=== PATIENT | female | born 1940 | race African-American/Black ===

== ENCOUNTER 2019-05-19 01:27 | Inpatient (IN) | payer MEDICARE ==
[2019-05-19] MEDS ORDERED: LORAZEPAM INJ 2 MG/1 ML VIAL ONE (02:04)
[2019-05-19] MEDS ORDERED: LEVETIRACETAM 1000 MG/NACL-ISO 1,000 MG/100 ML RTUPB IV ONE (02:17)
[2019-05-19 02:32] LABS: ALANINE AMINOTRANSFERASE 17 U/L (9-52); ALBUMIN 3.9 g/dL (3.5-5.0); ALKALINE PHOSPHATASE 145 U/L (38-126); ANION GAP 10 (5-19); ASPARTATE AMINO TRANSFERASE 27 U/L (14-36); BILIRUBIN,DIRECT 0.1 mg/dL (0.0-0.4); BILIRUBIN,TOTAL 0.2 mg/dL (0.2-1.3); BLOOD UREA NITROGEN 21 mg/dL (7-20); CALCIUM 9.7 mg/dL (8.4-10.2); CARBON DIOXIDE 25 mmol/L (22-30); CHLORIDE 105 mmol/L (98-107); CREATINE KINASE 84 U/L (30-135); GLUCOSE 185 mg/dL (75-110); LIPASE 267.6 U/L (23-300); POTASSIUM 4.6 mmol/L (3.6-5.0); TOTAL PROTEIN 7.3 g/dL (6.3-8.2)
[2019-05-19 02:34] LABS: ABSOLUTE EOSINOPHILS # (AUTO) 0.1 10^3/uL (0.0-0.6); ABSOLUTE LYMPHOCYTES (AUTO) 1.6 10^3/uL (0.5-4.7); ABSOLUTE MONOCYTES (AUTO) 0.4 10^3/uL (0.1-1.4); ABSOLUTE NEUT (AUTO) 3.9 10^3/uL (1.7-8.2); BASOPHILS % (AUTO) 0.7 % (0-2); EOSINOPHILS % (AUTO) 1.2 % (0-6); HEMATOCRIT 42.1 % (36.0-47.0); HEMOGLOBIN 13.7 g/dL (12.0-15.5); MEAN CORPUSCULAR HEMOGLOBIN 28.4 pg (27.0-33.4); MEAN CORPUSCULAR HGB CONC 32.7 g/dL (32.0-36.0); MEAN CORPUSCULAR VOLUME 87 fl (80-97); MONOCYTES % (AUTO) 6.2 % (3-13); PLATELET COUNT 250 10^3/uL (150-450); RED BLOOD COUNT 4.84 10^6/uL (3.72-5.28); RED CELL DISTRIBUTION WIDTH 14.9 % (11.5-14.0); SEGMENTED NEUTROPHILS % (AUTO) 64.9 % (42-78); TOTAL CELLS COUNTED % (AUTO) 100 %
[2019-05-19 02:36] LABS: INTERNATIONAL RATION (INR) 0.91; PARTIAL THROMBOPLASTIN TIME 30.5 SEC (23.5-35.8); PROTHROMBIN TIME 12.2 SEC (11.4-15.4)
[2019-05-19 02:56] LABS: CREATINE KINASE MB 2.18 ng/mL (<4.55); NT PRO BNP 114 pg/mL (<450)
[2019-05-19 03:04] LABS: TROPONIN I < 0.012 ng/mL
--- NOTE | 2019-05-19 03:25 | ER Document Report ---
ED Seizure - General Chief Complaint: possible seizure Stated Complaint: POSSIBLE SEIZURE Time Seen by Provider: 05/19/19 02:12 Primary Care Provider: STEPHANIE ARIAS MD [Primary Care Provider] - Follow up as needed Mode of Arrival: Medic Information source: Relative Cannot obtain history due to: Dementia, Altered mental status, Other - Post ictal TRAVEL OUTSIDE OF THE [place] IN LAST 30 DAYS: No - HPI Patient complains to provider of: First seizure Number of episodes: 2 Quality of pain: No pain Severity: None Episode witnessed (by whom): Yes - Family and one episode in the ED. Character of seizure: Complete loss/conscious, Generalized shaking Post-ictal symptoms: Other - Unresponsive Injuries: None Associated Symptoms: Loss consciousness - Related Data Allergies/Adverse Reactions: No Known Allergies Allergy (Unverified 01/06/16 02:25) Past Medical History - Social History Smoking Status: Unknown if Ever Smoked Family History: Reviewed & Not Pertinent Psychiatric Medical History: Denies: Hx Depression Past Surgical History: Reports: Hx Mastectomy Review of Systems - Review of Systems -: Yes ROS unobtainable due to patient's medical condition - Post Ictal and unresponsive. Physical Exam - Vital signs Vitals: Resp Pulse Ox 5 L 100 05/19/19 01:40 05/19/19 01:40 Interpretation: Normal - General General appearance: Unresponsive In distress: None - HEENT Head: Normocephalic, Atraumatic Eyes: Normal Pupils: PERRL - Respiratory Respiratory status: No respiratory distress Chest status: Nontender Breath sounds: Rhonchi Chest palpation: Normal - Cardiovascular Rhythm: Regular Heart sounds: Normal auscultation Murmur: No - Abdominal Inspection: Normal Distension: No distension Bowel sounds: Normal Tenderness: Nontender Organomegaly: No organomegaly - Extremities General upper extremity: Normal inspection, Nontender, Normal color, Normal ROM, Normal temperature General lower extremity: Normal inspection, Nontender, Normal color, Normal ROM, Normal temperature, Normal weight bearing. No: Isak's sign - Neurological [place] Coma Scale Eye Opening: To Pain [place] Coma Scale Verbal: None [place] Coma Scale Motor: Localizes to Pain [place] Coma Scale Total: 8 - Skin Skin Temperature: Warm Skin Moisture: Dry Skin Color: Normal Course - Vital Signs Vital signs: Temp Pulse Resp BP Pulse Ox 94.2 F L 87 17 147/81 H 100 05/19/19 03:01 05/19/19 01:44 05/19/19 03:01 05/19/19 03:01 05/19/19 03:01 - Laboratory Result Diagrams: 05/19/19 01:50 05/19/19 01:50 Laboratory results interpreted by me: 05/19/19 05/19/19 05/19/19 01:50 01:50 02:40 RDW 14.9 H BUN 21 H Glucose 185 H Alkaline Phosphatase 145 H Urine Protein 30 H Urine Glucose (UA) 150 H - Diagnostic Test Radiology reviewed: Reports reviewed - Transfer of Care Notes: 05/19/19 04:13 Patient will be admitted by the hospitalist on-call Dr. Hugh Katz for further evaluation and management. Discharge - Discharge Clinical Impression: New onset seizure, Hydrocephalus in adult Condition: Stable Disposition: ADMITTED INPATIENT Admitting Provider: Sterling (Hospitalist) Unit Admitted: IMCU Referrals: STEPHANIE ARIAS MD [Primary Care Provider] - Follow up as needed
[2019-05-19 03:36] LABS: URINE SPECIFIC GRAVITY 1.009
[2019-05-19 03:37] LABS: APPEARANCE,URINE CLEAR; BILIRUBIN,URINE NEGATIVE (NEGATIVE); COLOR,URINE STRAW; GLUCOSE, URINE 150 mg/dL (NEGATIVE); KETONES,URINE NEGATIVE (NEGATIVE); LEUKOCYTE ESTERASE,URINE NEGATIVE (NEGATIVE); NITRITE,URINE NEGATIVE (NEGATIVE); PROTEIN,URINE 30 mg/dL (NEGATIVE); UROBILINOGEN,URINE NEGATIVE mg/dL (<2.0)
--- NOTE | 2019-05-19 04:01 | RADIOLOGY REPORT (SQ) ---
CT head without contrast on 05/19/2019 at 3:27 AM CLINICAL INDICATION: New onset seizure TECHNIQUE: Multiple axial images are obtained throughout the head without the administration of contrast. This exam was performed according to our departmental dose-optimization program, which includes automated exposure control, adjustment of the mA and/or kV according to patient size and/or use of iterative reconstruction technique. Total DLP is 937.36 mGy*cm. COMPARISON: 01/05/2016 FINDINGS: There is worsening moderate to severe hydrocephalus. This may be related to worsening normal pressure hydrocephalus. If clinically indicated nuclear medicine cisternogram could better evaluate. There is generalized cerebral atrophy. There is low-density in the periventricular white matter consistent with chronic small vessel ischemic changes. There is no CT evidence of acute infarct. There is no hemorrhage. There are no abnormal extra-axial fluid collections. There is no mass, mass effect or midline shift. Mucous retention cyst is noted in the left maxillary sinus. No bony abnormality is noted area IMPRESSION: 1. Worsening hydrocephalus, this may be related to normal pressure hydrocephalus. 2. Atrophy and chronic small vessel ischemic changes.
--- NOTE | 2019-05-19 04:02 | RADIOLOGY REPORT (SQ) ---
Chest single view on 05/19/2019 at 3:39 AM CLINICAL INDICATION: Seizure COMPARISON: 01/05/2016 FINDINGS: There is mild elevation of the left hemidiaphragm. There is minimal left basilar atelectasis or scarring. The lungs are otherwise clear. Cardiac, hilar and mediastinal contours are within normal limits. Pulmonary vascularity is within normal limits. IMPRESSION: No acute disease.
[2019-05-19] MEDS ORDERED: ALBUTEROL SULFATE 0.083% NEB 2.5 MG/3 ML AMPUL NEB PRN (05:55)
[2019-05-19] MEDS ORDERED: ACETAMINOPHEN 650 MG SUPP.RECT PR PRN (05:55)
--- NOTE | 2019-05-19 06:12 | PDOC H&P ---
History of Present Illness Admission Date/PCP: 05/19/19 04:35 STEPHANIE ARIAS MD Patient complains of: Seizure History of Present Illness: PERI REILLY is a 78 year old female with a past medical history of advanced dementia who is bedbound, nonverbal and requires 100% assistance. She presents shortly after a witnessed seizure at home brought to the emergency room for evaluation and has another she receives IV Ativan and Keppra and remains in a postictal state. Her work-up is only remarkable for moderate to severe hydrocephalus. Family declines LP at this time. No evidence for ongoing seizure and she is referred to the hospitalist for admission. There is been no recent change in medications. Past Medical History Psychiatric Medical History: Reports: Dementia Denies: Depression Past Surgical History Past Surgical History: Reports: Mastectomy Social History Information Source: Relative, Emergency Med Personnel, [facility] Records Lives with: Family Smoking Status: Unknown if Ever Smoked Frequency of Alcohol Use: None Hx Recreational Drug Use: No - unknown Drugs: None Hx Prescription Drug Abuse: No - Advance Directive Resuscitation Status: Full Code Family History Family History: Hypertension Parental Family History Reviewed: No - Noncontributory Children Family History Reviewed: No - Noncontributory Sibling(s) Family History Reviewed.: No - Noncontributory Medication/Allergy Home Medications: Difluprednate [Durezol] 1 drop OP BID 01/06/16 Dorzolamide HCl/Timolol Maleat [Dorzolamide-Timolol Eye Drops] 1 drop OP BID 01/06/16 Memantine HCl [Namenda Xr] 1 cap PO DAILY 01/06/16 Polysorbate 80/Glycerin [Refresh Dry Eye Therapy Drops] 1 drop OP QHS 01/06/16 Rivastigmine [Exelon 9.5 mg/24 Hr Transdermal Patch] 1 ea TD QAM 01/06/16 Travoprost (Benzalkonium) [Travoprost 0.004% Eye Drop] 2.5 ml OP DAILY 01/06/16 Aspirin 81 mg PO DAILY PRN #1 pkg 01/15/16 Allergies/Adverse Reactions: No Known Allergies Allergy (Unverified 01/06/16 02:25) Review of Systems ROS unobtainable: Due to mental status Physical Exam Vital Signs: Temp Pulse Resp BP Pulse Ox 94.2 F L 87 17 147/81 H 100 05/19/19 03:01 05/19/19 01:44 05/19/19 03:01 05/19/19 03:01 05/19/19 03:01 Intake & Output 05/17/19 05/18/19 05/19/19 11:59 11:59 11:59 Weight 69.853 kg General appearance: PRESENT: mild distress, well-developed, well-nourished, other - Obtunded Head exam: PRESENT: atraumatic, normocephalic Eye exam: PRESENT: other - Right pupil pinpoint nonreactive, left pupil obscured by cataract. ABSENT: periorbital swelling, PERRLA, scleral icterus Ear exam: PRESENT: normal external ear exam Mouth exam: PRESENT: moist, tongue midline Neck exam: ABSENT: carotid bruit, JVD, lymphadenopathy, thyromegaly Respiratory exam: PRESENT: clear to auscultation mary. ABSENT: rales, rhonchi, wheezes Cardiovascular exam: PRESENT: RRR. ABSENT: diastolic murmur, rubs, systolic murmur Pulses: PRESENT: normal dorsalis pedis pul Vascular exam: PRESENT: normal capillary refill GI/Abdominal exam: PRESENT: normal bowel sounds, soft. ABSENT: distended, guarding, mass, organolmegaly, rebound, tenderness Rectal exam: PRESENT: deferred Extremities exam: PRESENT: full ROM. ABSENT: calf tenderness, clubbing, pedal edema Neurological exam: PRESENT: altered. ABSENT: alert, oriented to person, oriented to place, oriented to time, oriented to situation, CN II-XII grossly intact Psychiatric exam: ABSENT: appropriate affect, homicidal ideation, normal mood, suicidal ideation Focused psych exam: PRESENT: other - Obtunded Skin exam: PRESENT: dry, intact, warm. ABSENT: cyanosis, rash Results Laboratory Results: 05/19/19 01:50 05/19/19 01:50 05/19/19 05/19/19 05/19/19 01:50 01:50 02:40 WBC 6.0 RBC 4.84 Hgb 13.7 Hct 42.1 MCV 87 MCH 28.4 MCHC 32.7 RDW 14.9 H Plt Count 250 Seg Neutrophils % 64.9 Lymphocytes % 27.0 Monocytes % 6.2 Eosinophils % 1.2 Basophils % 0.7 Absolute Neutrophils 3.9 Absolute Lymphocytes 1.6 Absolute Monocytes 0.4 Absolute Eosinophils 0.1 Absolute Basophils 0.0 Sodium 140.0 Potassium 4.6 Chloride 105 Carbon Dioxide 25 Anion Gap 10 BUN 21 H Creatinine 0.86 Est GFR ( Amer) > 60 Est GFR (Non-Af Amer) > 60 Glucose 185 H Calcium 9.7 Total Bilirubin 0.2 AST 27 ALT 17 Alkaline Phosphatase 145 H Total Protein 7.3 Albumin 3.9 Lipase 267.6 Urine Color STRAW Urine Appearance CLEAR Urine pH 7.0 Ur Specific [place] 1.009 Urine Protein 30 H Urine Glucose (UA) 150 H Urine Ketones NEGATIVE Urine Blood NEGATIVE Urine Nitrite NEGATIVE Ur Leukocyte Esterase NEGATIVE Urine WBC (Auto) 2 Urine RBC (Auto) 3 05/19/19 05/19/19 01:50 01:50 Creatine Kinase 84 CK-MB (CK-2) 2.18 Troponin I < 0.012 NT-Pro-B Natriuret Pep 114 Impressions: Head CT 05/19/19 02:13 IMPRESSION: 1. Worsening hydrocephalus, this may be related to normal pressure hydrocephalus. 2. Atrophy and chronic small vessel ischemic changes. Chest X-Ray 05/19/19 02:14 IMPRESSION: No acute disease. Assessment and Plan - Diagnosis (1) Hydrocephalus in adult Is this a current diagnosis for this admission?: Yes Plan: Family declines LP at this time, will initiate loop diuretic trial. (2) New onset seizure Is this a current diagnosis for this admission?: Yes Plan: Secondary to #1, IV Keppra, complicated by advanced dementia unclear potential to recover p.o. status. Poor candidate for NG or PEG. Will consult hospice. (3) Dementia Is this a current diagnosis for this admission?: Yes Plan: End-stage, nonverbal poorly responsive but able to tolerate p.o. prior to seizure. Supportive measures - Time Time Spent with patient: 25-34 minutes - Inpatient Certification Medical Necessity: Need Close Monitoring Due to Risk of Patient Decompensation
[2019-05-19] MEDS ORDERED: FUROSEMIDE INJ/PF 40 MG/4 ML SDV IV ONE (06:30)
[2019-05-19] MEDS ORDERED: FUROSEMIDE INJ/PF 40 MG/4 ML SDV ONE (08:39)
[2019-05-19] MEDS: HEPARIN SOD (PORCINE) 5,000 UNIT/ML 1 ML SYRINGE SUBCUT SCH ×3 (09:09→21:13)
[2019-05-19] MEDS ORDERED: ACETAZOLAMIDE 500 MG CAPSULE.SA PO SCH (09:30)
--- NOTE | 2019-05-19 09:41 | EKG REPORT ---
SEVERITY:- NORMAL ECG - SINUS RHYTHM NONSPECIFIC ST-T CHANGES : Confirmed by: Lala Peña 19-May-2019 09:41:26
[2019-05-19] MEDS ORDERED: LEVETIRACETAM 1000 MG/NACL-ISO 1,000 MG/100 ML RTUPB IV SCH (10:00)
[2019-05-19] MEDS: ACETAZOLAMIDE SODIUM INJ 500 MG VIAL IV SCH ×2 (13:11→21:13)
--- NOTE | 2019-05-19 13:52 | ADVANCED CARE ---
- Diagnosis (1) Hydrocephalus in adult Diagnosis Current: Yes (2) New onset seizure Diagnosis Current: Yes (3) Abnormal CT of brain Diagnosis Current: Yes (4) Dementia Diagnosis Current: Yes (5) Functional quadriplegia Diagnosis Current: Yes Resuscitation Status: Do Not Resuscitate Discussion: Patient admitted after midnight for seizures x3 1 of which was in the ED this morning. I saw and examined patient this morning along with and son at bedside. Patient is not awake and snoring-likely secondary to the Ativan that was given to her in the Keppra that was loaded for. She is not any acute distress. I had a long discussion with son and father about her CODE STATUS They tell me that patient is completely dependent for all her needs at home. Supposedly she has been like this for over 5 years. Patient has severe dementia and she has been to physicians at [place] and her primary care doctor who have offered no help besides Namenda that what she is on. As per son and she lives at home all day and dependent on all her ADLs On admission she was full CODE STATUS. I discussed about different options regarding her CODE STATUS. I explained that one option is to continue with current status but we do not have neurology services here and if are unable to help her here then I will have to transfer her to a tertiary facility that has neuro services. Options to is that we continue with all noninvasive medical treatment-but no heroic measures to be implemented-such as chest compression and intubation should she have respiratory or cardiac failure. This will for sure lead to if we do not intervene. Her third option is to seek palliative/hospice which will keep her comfortable for whatever time she has remaining. This of course for sure will shorten her life span. After much consideration the family agrees that they do not want anything invasive but they are not also ready for hospice or comfort care at this time. They would like to make her DNR at this time. They would like us to do any kind of medical treatment to see if she improves and then they will reevaluate the situation. I told him that I will speak with neurology regarding her hydrocephalus and seizures. More than 50% of my time was spent counseling and coordinating care. Time Spent: 30 minutes
--- NOTE | 2019-05-19 13:55 | Progress Note ---
Provider Note Provider Note: Called and spoke with neurology from [facility]- dr bradford I went over the case with the neurologist and he feels that medical treatment will not help the patient if it is truly NPH and that the only treatment is invasive such as a ventricular shunt or a lumbar tap to relieve some pressure. He believes that the acetazolamide will not make a difference and that Keppra is the best way to go to help with her seizures. He says that she patient should follow-up with her neurologist outpatient after discharge. I have stopped her Lasix and I am considering stopping her Acetazolamide. He also recommends giving Keppra 750 twice daily instead of the 1000 she is on right now.
[2019-05-19] MEDS: DEXTROSE 5%-NORMAL SALINE 1,000 ML IV PRN (17:52)
[2019-05-19] MEDS: LEVETIRACETAM 750 MG in NORMAL SALINE 100 ML IV SCH (21:13)
[2019-05-20] MEDS: HEPARIN SOD (PORCINE) 5,000 UNIT/ML 1 ML SYRINGE SUBCUT SCH ×3 (05:36→21:52)
[2019-05-20] MEDS: DEXTROSE 5%-NORMAL SALINE 1,000 ML IV PRN (05:39)
[2019-05-20 06:13] LABS: HEMATOCRIT 37.2 % (36.0-47.0); HEMOGLOBIN 11.8 g/dL (12.0-15.5); MEAN CORPUSCULAR HEMOGLOBIN 28.1 pg (27.0-33.4); MEAN CORPUSCULAR HGB CONC 31.8 g/dL (32.0-36.0); MEAN CORPUSCULAR VOLUME 88 fl (80-97); PLATELET COUNT 147 10^3/uL (150-450); RED BLOOD COUNT 4.21 10^6/uL (3.72-5.28); RED CELL DISTRIBUTION WIDTH 14.4 % (11.5-14.0)
[2019-05-20 06:16] LABS: WHITE BLOOD COUNT 14.4 10^3/uL (4.0-10.5)
[2019-05-20 06:32] LABS: ANION GAP 7 (5-19); BLOOD UREA NITROGEN 14 mg/dL (7-20); CALCIUM 9.2 mg/dL (8.4-10.2); CARBON DIOXIDE 24 mmol/L (22-30); CHLORIDE 110 mmol/L (98-107); GLUCOSE 277 mg/dL (75-110); POTASSIUM 3.8 mmol/L (3.6-5.0); SODIUM 140.8 mmol/L (137-145)
[2019-05-20] MEDS: RIVASTIGMINE 9.5 MG/24 HR PATCH.TD24 TD SCH (08:48)
--- NOTE | 2019-05-20 09:21 | Physician Advisory Note ---
Physician Advisor ProgressNote .: [facility], I have reviewed the medical record for this patient. Physician Advisor Statement: Asked to review case r.e. status. Severely demented 78yo Medicare Advantage pt, bedbound/nonverbal, with new onset sz.s. - New onset sz.s = typically approp for Obs initially, changing to INpt if doesn't return to baseline fn by next day able to go home. Pt still post-ictal & unable to take po intake at time of adm. Also w/temps 94's & 96s initially. Now day 2, reportedly remains post-ictal & unable to take po intake, with " definite decline since sz.s noted". - Not a candidate for NGT or PEG, family decline LP or shunt to relieve pressure of hydrocephalus. Receiving IVF & IV Keppra. Attending, please clarify: 1. Status: If this d2 info is accurate, please document the bolded points above, - If now expecting pt to require a 2nd night of close monitoring/tx in hospital awaiting return of fn, response to tx, or making other decisions, may be appropriate to change to Inpatient status. - If, however, plan is home or hospice ctr today w/comfort care, then should remain Obs status. 2. Is pt going to change to "comfort care"? (if so, please state this, & continue to list all dx.s pertinent to this adm.) 3. Did pt have "hypothermia, likely due to " initially, or were the initial temps spurious, or ...? Thanks! CK
[2019-05-20] MEDS ORDERED: TRAVOPROST OP SCH (10:00)
[2019-05-20] MEDS ORDERED: FUROSEMIDE INJ/PF 40 MG/4 ML SDV IV SCH (10:00)
[2019-05-20 10:02] LABS: ALANINE AMINOTRANSFERASE 18 U/L (9-52); ALKALINE PHOSPHATASE 92 U/L (38-126); ANION GAP 7 (5-19); ASPARTATE AMINO TRANSFERASE 16 U/L (14-36); BILIRUBIN,DIRECT 0.1 mg/dL (0.0-0.4); BILIRUBIN,TOTAL 0.3 mg/dL (0.2-1.3); BLOOD UREA NITROGEN 12 mg/dL (7-20); CALCIUM 9.1 mg/dL (8.4-10.2); CARBON DIOXIDE 21 mmol/L (22-30); CHLORIDE 112 mmol/L (98-107); GLUCOSE 258 mg/dL (75-110); POTASSIUM 3.7 mmol/L (3.6-5.0); SODIUM 139.8 mmol/L (137-145); TOTAL PROTEIN 5.7 g/dL (6.3-8.2)
[2019-05-20] MEDS: LEVETIRACETAM 750 MG in NORMAL SALINE 100 ML IV SCH ×2 (10:39→22:08)
[2019-05-20] MEDS ORDERED: CEFTRIAXONE INJ 1000 MG VIAL IV SCH (11:30)
--- NOTE | 2019-05-20 11:42 | PDOC PROGRESS REPORT ---
Subjective Progress Note for:: 05/20/19 Subjective:: 78 year old female with a past medical history of advanced dementia who is bedbound, nonverbal and requires 100% assistance. She presents shortly after a witnessed seizure at home brought to the emergency room for evaluation and has another she receives IV Ativan and Keppra and remains in a postictal state. Her work-up is only remarkable for moderate to severe hydrocephalus. Family declines LP at this time. No evidence for ongoing seizure and she is referred to the hospitalist for admission. There is been no recent change in medications. 05/[id number]-lutg-old female with past medical history of advanced dementia patient is bedbound at home nonverbal requiring 100% assistance at home she does not have any decubitus ulcerations at home. She was brought in for a witnessed seizure and she received IV Ativan and IV Keppra. CT scan shows severe hydrocep halus. Family is declined LP. If the LP need to be done probably she need to go to a tertiary care facility for further management. No acute events. Afebrile. Urine culture came back positive for gram-positive cocci started on IV Rocephin. During my examination patient slightly open her eyes and started moving her upper extremities. Reason For Visit: SEIZURE DEMENTIA Physical Exam Vital Signs: Temp Pulse Resp BP Pulse Ox 97.3 F 70 17 151/66 H 88 L 05/20/19 07:28 05/20/19 07:28 05/20/19 07:28 05/20/19 07:28 05/20/19 07:28 Intake & Output 05/19/19 05/20/19 05/21/19 06:59 06:59 06:59 Intake Total 1191.5 Output Total 425 Balance 766.5 Weight 69.853 kg 69.8 kg General appearance: PRESENT: no acute distress Head exam: PRESENT: atraumatic Eye exam: PRESENT: PERRLA Mouth exam: PRESENT: dry mucosa Teeth exam: PRESENT: poor dentation Neck exam: ABSENT: carotid bruit, JVD, lymphadenopathy, thyromegaly Respiratory exam: PRESENT: clear to auscultation mary. ABSENT: rales, rhonchi, wheezes Cardiovascular exam: PRESENT: RRR. ABSENT: diastolic murmur, rubs, systolic murmur GI/Abdominal exam: PRESENT: normal bowel sounds, soft. ABSENT: distended, guarding, mass, organolmegaly, rebound, tenderness Rectal exam: PRESENT: deferred Extremities exam: PRESENT: full ROM. ABSENT: calf tenderness, clubbing, pedal edema Neurological exam: PRESENT: other - Patient has advanced dementia unable to follow the commands. Patient is bedbound at home. Results Laboratory Results: 05/20/19 05:49 05/20/19 08:15 05/20/19 05/20/19 05/20/19 05:49 05:49 08:15 WBC 14.4 H D RBC 4.21 Hgb 11.8 L Hct 37.2 MCV 88 MCH 28.1 MCHC 31.8 L RDW 14.4 H Plt Count 147 L Sodium 140.8 139.8 Potassium 3.8 3.7 Chloride 110 H 112 H Carbon Dioxide 24 21 L Anion Gap 7 7 BUN 14 12 Creatinine 0.77 0.77 Est GFR ( Amer) > 60 > 60 Est GFR (Non-Af Amer) > 60 > 60 Glucose 277 H 258 H Calcium 9.2 9.1 Magnesium 2.4 H Total Bilirubin 0.3 AST 16 ALT 18 Alkaline Phosphatase 92 Total Protein 5.7 L Albumin 3.0 L 05/19/19 05/19/19 01:50 01:50 Creatine Kinase 84 CK-MB (CK-2) 2.18 Troponin I < 0.012 NT-Pro-B Natriuret Pep 114 Impressions: Head CT 05/19/19 02:13 IMPRESSION: 1. Worsening hydrocephalus, this may be related to normal pressure hydrocephalus. 2. Atrophy and chronic small vessel ischemic changes. Chest X-Ray 05/19/19 02:14 IMPRESSION: No acute disease. Assessment and Plan - Diagnosis (1) Dementia Is this a current diagnosis for this admission?: Yes Plan: End-stage, nonverbal poorly responsive but able to tolerate p.o. prior to seizure. Supportive measures 05/20/2019-patient has advanced dementia restarted on home medications right now patient is unable to take any p.o. medications. (2) Abnormal CT of brain Is this a current diagnosis for this admission?: Yes Plan: 05/20/2019-patient has abdominal CT head with severe hydrocephalus family declined LP so far. If the family agreed for LP patient may need to be transferred to tertiary care facility. Presently on loop diuretics. (3) UTI (urinary tract infection) Is this a current diagnosis for this admission?: Yes Plan: 05/20/2019-patient's urine culture came back positive for gram-positive cocci started on IV Rocephin 2 g daily. (4) New onset seizure Is this a current diagnosis for this admission?: Yes Plan: Secondary to #1, IV Keppra, complicated by advanced dementia unclear potential to recover p.o. status. Poor candidate for NG or PEG. Will consult hospice. 05/21/2019-patient has witnessed seizure activity presently on IV Keppra no seizure activity after the admission. - Time Time Spent with patient: 25-34 minutes Medications reviewed and adjusted accordingly: Yes Anticipated discharge: Home
[2019-05-20] MEDS: CEFTRIAXONE 2 GM/D5W RTU 2 GM/50 ML RTUPB IV SCH (13:10)
[2019-05-20] MEDS ORDERED: TRAVOPROST OS SCH (22:00)
[2019-05-20] MEDS ORDERED: LATANOPROST 0.005% OPH SOLN 2.5 ML OS SCH (22:00)
[2019-05-20] MEDS: [UNRECOGNIZED DRUG - OTHER] OS SCH (22:08)
[2019-05-20] MEDS: DIFLUPREDNATE OS SCH (22:16)
[2019-05-20] MEDS: LATANOPROST 0.005% OPH SOLN 2.5 ML OS SCH (22:21)
[2019-05-21] MEDS: HYDRALAZINE HCL INJ/PF 20 MG/1 ML SDV IV PRN (04:46)
[2019-05-21 05:45] LABS: ABSOLUTE BASOPHILS # (AUTO) 0.1 10^3/uL (0.0-0.2); ABSOLUTE LYMPHOCYTES (AUTO) 1.3 10^3/uL (0.5-4.7); ABSOLUTE MONOCYTES (AUTO) 0.8 10^3/uL (0.1-1.4); ABSOLUTE NEUT (AUTO) 6.9 10^3/uL (1.7-8.2); BASOPHILS % (AUTO) 0.8 % (0-2); EOSINOPHILS % (AUTO) 0.2 % (0-6); HEMATOCRIT 37.3 % (36.0-47.0); HEMOGLOBIN 12.3 g/dL (12.0-15.5); LYMPHOCYTES % (AUTO) 14.1 % (13-45); MEAN CORPUSCULAR HEMOGLOBIN 28.5 pg (27.0-33.4); MEAN CORPUSCULAR HGB CONC 32.9 g/dL (32.0-36.0); MEAN CORPUSCULAR VOLUME 87 fl (80-97); MONOCYTES % (AUTO) 8.6 % (3-13); PLATELET COUNT 160 10^3/uL (150-450); RED BLOOD COUNT 4.31 10^6/uL (3.72-5.28); RED CELL DISTRIBUTION WIDTH 14.6 % (11.5-14.0); SEGMENTED NEUTROPHILS % (AUTO) 76.3 % (42-78); TOTAL CELLS COUNTED % (AUTO) 100 %
[2019-05-21] MEDS: HEPARIN SOD (PORCINE) 5,000 UNIT/ML 1 ML SYRINGE SUBCUT SCH ×3 (06:40→22:36)
[2019-05-21] MEDS: RIVASTIGMINE 9.5 MG/24 HR PATCH.TD24 TD SCH (08:25)
[2019-05-21 08:46] LABS: ALANINE AMINOTRANSFERASE 19 U/L (9-52); ALBUMIN 3.2 g/dL (3.5-5.0); ALKALINE PHOSPHATASE 86 U/L (38-126); ASPARTATE AMINO TRANSFERASE 20 U/L (14-36); BILIRUBIN,DIRECT 0.1 mg/dL (0.0-0.4); BILIRUBIN,TOTAL 0.2 mg/dL (0.2-1.3); BLOOD UREA NITROGEN 10 mg/dL (7-20); CALCIUM 9.4 mg/dL (8.4-10.2); GLUCOSE 130 mg/dL (75-110); POTASSIUM 3.5 mmol/L (3.6-5.0); TOTAL PROTEIN 6.2 g/dL (6.3-8.2)
[2019-05-21 08:51] LABS: CARBON DIOXIDE 23 mmol/L (22-30); CHLORIDE 115 mmol/L (98-107); SODIUM 142.7 mmol/L (137-145)
[2019-05-21 08:54] LABS: ANION GAP 5 (5-19)
[2019-05-21] MEDS: LEVETIRACETAM 750 MG in NORMAL SALINE 100 ML IV SCH ×2 (09:41→22:31)
[2019-05-21] MEDS: DIFLUPREDNATE OS SCH ×2 (09:41→22:35)
[2019-05-21] MEDS: CEFTRIAXONE 2 GM/D5W RTU 2 GM/50 ML RTUPB IV SCH (10:53)
--- NOTE | 2019-05-21 11:57 | Physician Advisory Note ---
Physician Advisor ProgressNote .: [facility] medical record for this patient. Physician Advisor Statement: Since last review: Dx'd UTI, (+)leukocytosis & thrombocytopenia & low bicarb (?acute metab acidosis). Pt w/frequent tachypnea initially, O2 sat as low as 88% on 2L O2 7/8 AM, recurrent low temp (94.6 rectal) 7/8 PM, [employer] noting concerns family has been fed even when not alert & high risk aspiration prior to adm. Remaining obtunded (not baseline). Attending, please make clear in documentation: 1. Is any other infxn being suspected besides UTI? (Aspiration PNA? Sepsis due to ___? other? none?) - & if so, state what findings (such as above) are caused by this infxn. (Any other eval needed to decide, such as lactate levels or CXR, or not?) - If sepsis is suspected, please state the approximate timing of its onset (< or > 48hrs from adm). 2. Likely cause(s) of hypoxemia, thrombocytopenia, low bicarb, hypothermia (if not clarified w/#1) Status: Medical necessity for 2nd [place] clear for this Medicare Advantage pt for whom we are a non-participating provider, so Inpt appropriate: Remaining obtunded, unable to take meds (not baseline), unclear potential to recover po status, not good candidate for NGT or PEG, needing IV Keppra for sz.s & IV R ocephin for UTI, family uncertain about Hospice vs transfer to [facility]..... Thx! CK
[2019-05-21] MEDS: AMPICILLIN SODIUM 1 GM in NORMAL SALINE 50 ML IV SCH ×2 (17:11→23:30)
[2019-05-21] MEDS ORDERED: AMPICILLIN SODIUM 500 MG in NORMAL SALINE 25 ML IV SCH (18:00)
--- NOTE | 2019-05-21 19:49 | PDOC PROGRESS REPORT ---
Subjective Progress Note for:: 05/21/19 Subjective:: Multiple family member sitting at the bedside. The patient is unresponsive to verbal stimulus. Family reports that she has been this way since admission. Reason For Visit: SEIZURES HYRDOCEPHALUS Physical Exam Vital Signs: Temp Pulse Resp BP Pulse Ox 98.4 F 69 18 144/61 H 100 05/21/19 14:58 05/21/19 14:58 05/21/19 14:58 05/21/19 14:58 05/21/19 14:58 Intake & Output 05/20/19 05/21/19 05/22/19 06:59 06:59 06:59 Intake Total 1191.5 739.0 157.5 Output Total 425 1450 Balance 766.5 -711.0 157.5 Weight 69.8 kg 75.8 kg General appearance: PRESENT: no acute distress, well-developed, other - Eyes closed. Unresponsive. Head exam: PRESENT: atraumatic, normocephalic Eye exam: PRESENT: other - She did resist when I try to open her eyes for examination Mouth exam: PRESENT: other - Unable to assess Respiratory exam: PRESENT: clear to auscultation mary - Anteriorly, symmetrical, unlabored. ABSENT: rales, rhonchi, tachypnea, wheezes Cardiovascular exam: PRESENT: RRR, +S1, +S2 GI/Abdominal exam: PRESENT: normal bowel sounds, soft. ABSENT: distended, tende rness Rectal exam: PRESENT: deferred Gentrourinary exam: PRESENT: indwelling catheter Extremities exam: ABSENT: joint swelling, pedal edema Musculoskeletal exam: ABSENT: ambulatory - Bedridden for several years Neurological exam: ABSENT: alert - Baseline is bedbound, unable to feed herself. Transfers by lift to chair or wheelchair., awake Psychiatric exam: ABSENT: agitated, anxious Focused psych exam: ABSENT: restlessness Skin exam: PRESENT: dry, normal color, warm Results Laboratory Results: 05/21/19 05:18 05/21/19 05:18 05/21/19 05/21/19 05:18 05:18 WBC 9.0 RBC 4.31 Hgb 12.3 Hct 37.3 MCV 87 MCH 28.5 MCHC 32.9 RDW 14.6 H Plt Count 160 Seg Neutrophils % 76.3 Lymphocytes % 14.1 Monocytes % 8.6 Eosinophils % 0.2 Basophils % 0.8 Absolute Neutrophils 6.9 Absolute Lymphocytes 1.3 Absolute Monocytes 0.8 Absolute Eosinophils 0.0 Absolute Basophils 0.1 Sodium 142.7 Potassium 3.5 L Chloride 115 H Carbon Dioxide 23 Anion Gap 5 BUN 10 Creatinine 0.81 Est GFR ( Amer) > 60 Est GFR (Non-Af Amer) > 60 Glucose 130 H Calcium 9.4 Magnesium 2.3 Total Bilirubin 0.2 AST 20 ALT 19 Alkaline Phosphatase 86 Total Protein 6.2 L Albumin 3.2 L 05/19/19 02:40 Catheterized Urine Urine Culture - Final Enterococcus Faecalis(Group D) 05/19/19 05/19/19 01:50 01:50 Creatine Kinase 84 CK-MB (CK-2) 2.18 Troponin I < 0.012 NT-Pro-B Natriuret Pep 114 Impressions: Head CT 05/19/19 02:13 IMPRESSION: 1. Worsening hydrocephalus, this may be related to normal pressure hydrocephalus. 2. Atrophy and chronic small vessel ischemic changes. Chest X-Ray 05/19/19 02:14 IMPRESSION: No acute disease. Assessment and Plan - Diagnosis (1) Hydrocephalus in adult Is this a current diagnosis for this admission?: Yes Plan: 05/21/2019-the patient had a CT scan in December 2015 that showed hydrocephalus at that time. It was not addressed. The current scan reveals worsened hydrocephalus that there is moderate to severe. The family declined lumbar puncture on admission. I asked them why. The did not seem to understand fully all of the issues involved. I explained that decreasing the pressure is of paramount importance. They would like the patient to be transferred for a HOT AIR FURNACE INSTALLER REPAIRER shunt. The patient has not been out of bed, is a phasic and a functional quadriplegic and I explained that neurosurgery might not accept the case. They have agreed to lumbar puncture with interventional radiology. If draining the fluid makes a noticeable difference then it may change the referral however we did discuss referral sites. They would like me to start at [facility]. We had a long discussion about her current quality of life and potential recovery. (2) New onset seizure Is this a current diagnosis for this admission?: Yes Plan: 05/21/2019-seizures secondary to the moderate to severe hydrocephalus. No further seizure activity on intravenous Keppra. (3) Dementia Qualifiers: Dementia type: unspecified type Dementia behavioral disturbance: without behavioral disturbance Qualified Code(s): F03.90 - Unspecified dementia without behavioral disturbance Is this a current diagnosis for this admission?: Yes Plan: 05/21/2019-dementia is quite advanced. As noted above the patient is immobile, aphasic and a functional quadriplegic. She is able to eat when she is fed. There is a question of how safe her swallow was based on speech therapy evaluation. At this point she is obtunded and clearly unable to swallow. As noted above the family does want to pursue HOT AIR FURNACE INSTALLER REPAIRER shunt placement. (4) UTI (urinary tract infection) due to Enterococcus Is this a current diagnosis for this admission?: Yes Plan: Urine culture obtained on admission has grown enterococcus. I have discontinued the Rocephin and started IV ampicillin 1 g IV every 6 hours. It is unlikely that an episode of cystitis has triggered all of the events. Certainly an infection can cause hypothermia in an older patient. There was no drop in blood pressure. Her oxygen saturation dropped to 80% briefly and she is on nasal cannula. We will attempt to wean her oxygen. We will continue to monitor to see how she responds to the change in antibiotics as well as the lumbar puncture for fluid removal. (5) Hypothermia Qualifiers: Encounter type: initial encounter Qualified Code(s): T68.XXXA - Hypothermia, initial encounter Is this a current diagnosis for this admission?: Yes Plan: The patient was hypothermic on admission. It is unclear as to the etiology. It certainly could be from infection. I am going to check her thyroid studies as well. Her temperature is back to normal at this point. - Time Time Spent with patient: 25-34 minutes Medications reviewed and adjusted accordingly: Yes - Plan Summary Plan Summary: At this point the family still wants to pursue a HOT AIR FURNACE INSTALLER REPAIRER shunt. I explained very thoroughly that due to her underlying condition as well as her end-stage dementia of the facilities that offer neurosurgery may decline to even accept the patient. I have ordered a lumbar puncture with interventional radiology tomorrow. I will also call the transfer center at [facility].
[2019-05-21] MEDS ORDERED: POTASSI CL 20 MEQ/50 ML RIDER 20 MEQ/50 ML RTUPB IV ONE (20:00)
[2019-05-21] MEDS: [UNRECOGNIZED DRUG - OTHER] OS SCH (22:35)
[2019-05-21] MEDS: LATANOPROST 0.005% OPH SOLN 2.5 ML OS SCH (22:39)
[2019-05-22] MEDS: HYDRALAZINE HCL INJ/PF 20 MG/1 ML SDV IV PRN (04:12)
[2019-05-22 05:28] LABS: ANION GAP 8 (5-19); BLOOD UREA NITROGEN 10 mg/dL (7-20); CALCIUM 9.4 mg/dL (8.4-10.2); CARBON DIOXIDE 22 mmol/L (22-30); CHLORIDE 114 mmol/L (98-107); GLUCOSE 107 mg/dL (75-110); POTASSIUM 3.4 mmol/L (3.6-5.0); SODIUM 144.3 mmol/L (137-145)
[2019-05-22] MEDS: AMPICILLIN SODIUM 1 GM in NORMAL SALINE 50 ML IV SCH ×4 (05:31→23:48)
[2019-05-22 05:39] LABS: FREE T3 3.18 pg/mL (2.77-5.27); FREE T4 (FREE THYROXINE) 1.5 ng/dL (0.78-2.19)
[2019-05-22 05:52] LABS: THYROID STIMULATING HORMONE 1.56 uIU/mL (0.47-4.68)
[2019-05-22] MEDS: RIVASTIGMINE 9.5 MG/24 HR PATCH.TD24 TD SCH (08:14)
[2019-05-22] MEDS: LEVETIRACETAM 750 MG in NORMAL SALINE 100 ML IV SCH ×2 (09:52→21:27)
[2019-05-22] MEDS: DIFLUPREDNATE OS SCH ×2 (09:52→21:29)
[2019-05-22] MEDS: POTASSI CL 20 MEQ/50 ML RIDER 20 MEQ/50 ML RTUPB IV SCH ×2 (12:14→15:01)
--- NOTE | 2019-05-22 14:36 | RADIOLOGY REPORT (SQ) ---
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 FLUOROSCOPY TIME: 2 minutes 60 seconds 6 images saved to PACS. TECHNIQUE: Fluoroscopic guided lumbar puncture. LIMITATIONS: None. PROCEDURE: After written consent and assessment were obtained, the patient was brought into the fluo roscopy room and placed prone on the table. The patient's lower back was prepped in a sterile fashio n and an entry site was selected under live fluoroscopic guidance. The entry site was anesthetized wi th 1% lidocaine. A 20 gauge needle was advanced through the skin and multiple attempts at gaining acc ess into the spinal canal were made without success. Additional sites were attempted without success . The procedure was terminated at this time. The needle was removed and a sterile dressing was appl ied. Multiple fluoroscopic spot images were saved to PACS. FINDINGS: Unsuccessful attempt at image guided lumbar puncture. IMPRESSION: Unsuccessful attempt a image guided lumbar puncture. COMMENT: Patient medication list reviewed: Yes- Quality ID# [id number]:Eligible professional attests to doc umenting in the medical record they obtained, updated, or reviewed the patient's current medications. . Quality ID [id number]: Final reports for procedures using fluoroscopy that document radiation exposure misbah clarita, or exposure time and number of fluorographic images (if radiation exposure indices are not avail able) TECHNICAL DOCUMENTATION: JOB ID: [id number] [employer]- All Rights Reserved Reading location - IP/workstation name: [email or web address]
--- NOTE | 2019-05-22 17:31 | ADVANCED CARE ---
- Diagnosis (1) Hydrocephalus in adult Diagnosis Current: Yes (2) New onset seizure Diagnosis Current: Yes (3) Dementia Diagnosis Current: Yes (4) UTI (urinary tract infection) due to Enterococcus Diagnosis Current: Yes (5) Hypothermia Diagnosis Current: Yes Attendance: On May 21 the patient's and 5 other relatives including her daughter were present. I also spoke with Olga Villeda MD who is a close family friend and considered to be like her daughter. On May 22 I was able to speak to the patient's son and an additional relative. Resuscitation Status: Do Not Resuscitate Discussion: The patient's family is aware of the hydrocephalus. That is the leading consideration for her seizure. She also has urinary tract infection and enterococcus was identified. The hydrocephalus has been present since 2016. It has increased in its considered moderate to severe. It is possible that the hydrocephalus caused the seizure activity but it is difficult to be certain. The infection may have contributed as well. The patient's family is requesting transfer so that a ACCOUNTS ADMINISTRATOR shunt can be placed. They also declined a lumbar puncture when the patient was first admitted. I reviewed the typical changes associated with hydrocephalus and common treatment alternatives. Initially a lumbar puncture is obtained to directly assess the cerebral spinal fluid pressure and at that time fluid is drained off. Sometimes that will relieve symptoms. I explained that at this facility most of the lumbar punctures are done with interventional radiology. I also explained in detail what is involved with placing a ACCOUNTS ADMINISTRATOR shunt. I do not think they were aware of the nature of the operation. I explained that in a patient who is a functional quadriplegic and is a phasic the risk versus benefit will likely result in neurosurgery declining such a procedure. As of yesterday the plan was to order the lumbar puncture and continue the antibiotics. If the patient improved then we would not consider transfer for ACCOUNTS ADMINISTRATOR shunt. This morning the patient in fact was more alert. Speech therapy was able to work with her. This was prior to the lumbar puncture being obtained. The patient may very well be responding to the antibiotic therapy or it just took her an extended period, longer than expected, for the postictal state to resolve. Narrowing the scope of antibiotic therapy to ampicillin specifically for the enterococcus may also be contributing to the improvement. Speech did explain to the family that there is definitely high risk for aspiration. She did make sure that they understood this. With that in mind we will try a pured diet with nectar thick liquids. I reviewed that with the patient's son today and made sure they understand the high risk of aspiration. The patient's would like the patient to eat and I did encourage the son not to let anyone be too aggressive with feeding the patient since it takes 6 seconds for her to initiate swallow. During my encounter today the patient was sleeping. The patient's son states that her normal routine is to fall asleep after she eats. I did review the patient's quality of life. I explained to the patient's that even if they do the ACCOUNTS ADMINISTRATOR shunt is not going to make her walk, be able to use her hands or resolve the aphasia. He stated that he would be very happy if she returned to the former state where she could eat, open her eyes and if she did this he would be satisfied with that improvement even if she were to live for 15 years. I tried to point out the fact that no one was considering the patient's best interest and I specifically asked him that if he spoke to his 10 years ago and asked her if she would want to be kept alive in this state but which he say. He immediately shook his head no. That at the same time continued the wish for her to return to her recent baseline which, as noted above, is functional quadriplegia with aphasia and dysphagia. Care Planning Goals: The patient is DO NOT RESUSCITATE. My goal was to establish parameters with regard to decision-making including palliative care versus hospice. I will likely suggest a palliative care consult tomorrow based on the results of the lumbar puncture and her condition. Document(s) Completed: No documents completed Time Spent: 45 minutes
--- NOTE | 2019-05-22 17:39 | PDOC PROGRESS REPORT ---
Subjective Progress Note for:: 05/22/19 Subjective:: Patient opened her eyes earlier and was able to work with speech therapy. She is sleeping at the time of this encounter. Reason For Visit: SEIZURES HYRDOCEPHALUS Physical Exam Vital Signs: Temp Pulse Resp BP Pulse Ox 97.4 F 64 16 156/76 H 99 05/22/19 04:02 05/22/19 07:00 05/22/19 04:02 05/22/19 05:10 05/22/19 04:34 Intake & Output 05/21/19 05/22/19 05/23/19 06:59 06:59 06:59 Intake Total 739.0 465.0 Output Total 1450 475 Balance -711.0 -10.0 Weight 75.8 kg 76.1 kg General appearance: PRESENT: no acute distress - sleeping soundly now Head exam: PRESENT: atraumatic, normocephalic Eye exam: PRESENT: other - unble to assess Mouth exam: PRESENT: dry mucosa, tongue midline Respiratory exam: PRESENT: clear to auscultation mary - decreased breath sounds due to limited inspirtory phase Cardiovascular exam: PRESENT: RRR, +S1, +S2 GI/Abdominal exam: PRESENT: normal bowel sounds, soft. ABSENT: distended, tenderness Rectal exam: PRESENT: deferred Gentrourinary exam: PRESENT: indwelling catheter Extremities exam: ABSENT: calf tenderness, pedal edema Musculoskeletal exam: PRESENT: other - decreased muscle Neurological exam: ABSENT: awake Psychiatric exam: PRESENT: other - Unresponsive to verbal stimuli. ABSENT: agitated, anxious Focused psych exam: ABSENT: restlessness Results Laboratory Results: 05/21/19 05:18 05/22/19 04:37 05/22/19 05/22/19 04:37 04:37 Sodium 144.3 Potassium 3.4 L Chloride 114 H Carbon Dioxide 22 Anion Gap 8 BUN 10 Creatinine 0.70 Est GFR ( Amer) > 60 Est GFR (Non-Af Amer) > 60 Glucose 107 Calcium 9.4 Magnesium 2.2 TSH 1.56 Free T4 1.50 Free T3 pg/mL 3.18 05/19/19 02:40 Catheterized Urine Urine Culture - Final Enterococcus Faecalis(Group D) 05/19/19 05/19/19 01:50 01:50 Creatine Kinase 84 CK-MB (CK-2) 2.18 Troponin I < 0.012 NT-Pro-B Natriuret Pep 114 Impressions: Head CT 05/19/19 02:13 IMPRESSION: 1. Worsening hydrocephalus, this may be related to normal pressure hydrocephalus. 2. Atrophy and chronic small vessel ischemic changes. Chest X-Ray 05/19/19 02:14 IMPRESSION: No acute disease. Assessment and Plan - Diagnosis (1) Hydrocephalus in adult Is this a current diagnosis for this admission?: Yes Plan: 05/21/2019-the patient had a CT scan in December 2015 that showed hydrocephalus at that time. It was not addressed. The current scan reveals worsened hydr ocephalus that there is moderate to severe. The family declined lumbar puncture on admission. I asked them why. The did not seem to understand fully all of the issues involved. I explained that decreasing the pressure is of paramount importance. They would like the patient to be transferred for a INTERNET SALES DIRECTOR shunt. The patient has not been out of bed, is a phasic and a functional quadriplegic and I explained that neurosurgery might not accept the case. They have agreed to lumbar puncture with interventional radiology. If draining the fluid makes a noticeable difference then it may change the referral however we did discuss referral sites. They would like me to start at [facility]. We had a long discussion about her current quality of life and potential recovery. 05/22/2019-the patient was more alert this morning. The 2 possibilities are treatment of the infection with the antibiotics versus her postictal state lasting much longer than would normally be expected. She is scheduled for lumbar puncture later today. Based on those results we will discuss whether or not to consider INTERNET SALES DIRECTOR shunt. If she continues to improve with the antibiotic therapy and supportive care then that will also obviate the need for a INTERNET SALES DIRECTOR shunt. (2) New onset seizure Is this a current diagnosis for this admission?: Yes Plan: 05/21/2019-seizures secondary to the moderate to severe hydrocephalus. No further seizure activity on intravenous Keppra. 05/22/2019-as noted above the seizure activity is likely due to the worsening hydrocephalus. She is scheduled for lumbar puncture today. She is more awake and alert this morning (but is sleeping at this time) and this could be related to the antibiotics or delayed resolution of the postictal state as noted above. She is on Keppra and has remained seizure-free. (3) Dementia Qualifiers: Dementia type: unspecified type Dementia behavioral disturbance: without behavioral disturbance Qualified Code(s): F03.90 - Unspecified dementia without behavioral disturbance Is this a current diagnosis for this admission?: Yes Plan: 05/21/2019-dementia is quite advanced. As noted above the patient is immobile, aphasic and a functional quadriplegic. She is able to eat when she is fed. There is a question of how safe her swallow was based on speech therapy evaluation. At this point she is obtunded and clearly unable to swallow. As noted above the family does want to pursue INTERNET SALES DIRECTOR shunt placement. 05/22/2019-we are continuing her current medication regimen and will resume medications now that speech therapy feels she can handle a pured nectar thick diet although there is still significant risk of aspiration. (4) UTI (urinary tract infection) due to Enterococcus Is this a current diagnosis for this admission?: Yes Plan: 05/21/2019-urine culture obtained on admission has grown enterococcus. I have discontinued the Rocephin and started IV ampicillin 1 g IV every 6 hours. It is unlikely that an episode of cystitis has triggered all of the events. Certainly an infection can cause hypothermia in an older patient. There was no drop in blood pressure. Her oxygen saturation dropped to 80% briefly and she is on nasal cannula. We will attempt to wean her oxygen. We will continue to monitor to see how she responds to the change in antibiotics as well as the lumbar puncture for fluid removal. 05/22/2019-the patient has received several doses of IV ampicillin. She was alert and awake earlier today. We will continue the ampicillin and monitor her progress. (5) Hypothermia Qualifiers: Encounter type: initial encounter Qualified Code(s): T68.XXXA - Hypothermia, initial encounter Is this a current diagnosis for this admission?: Yes Plan: 05/21/2019-the patient was hypothermic on admission. It is unclear as to the etiology. It certainly could be from infection. I am going to check her thyroid studies as well. Her temperature is back to normal at this point. 05/22/2019-the patient is back to normal temperature. We will continue to monitor. (6) Hypokalemia Is this a current diagnosis for this admission?: Yes Plan: The patient's serum potassium has been low. We are administering IV potassium as her swallow has only been deemed safe as of this morning. We will continue to monitor potassium. - Time Time Spent with patient: 25-34 minutes Medications reviewed and adjusted accordingly: Yes
[2019-05-22] MEDS: [UNRECOGNIZED DRUG - OTHER] OS SCH (21:28)
[2019-05-22] MEDS: LATANOPROST 0.005% OPH SOLN 2.5 ML OS SCH (21:28)
[2019-05-22] MEDS: HEPARIN SOD (PORCINE) 5,000 UNIT/ML 1 ML SYRINGE SUBCUT SCH (21:29)
[2019-05-23 05:28] LABS: ABSOLUTE EOSINOPHILS # (AUTO) 0.1 10^3/uL (0.0-0.6); ABSOLUTE LYMPHOCYTES (AUTO) 1.3 10^3/uL (0.5-4.7); ABSOLUTE MONOCYTES (AUTO) 0.6 10^3/uL (0.1-1.4); ABSOLUTE NEUT (AUTO) 4.6 10^3/uL (1.7-8.2); BASOPHILS % (AUTO) 0.3 % (0-2); EOSINOPHILS % (AUTO) 1.3 % (0-6); HEMATOCRIT 37.8 % (36.0-47.0); HEMOGLOBIN 12.5 g/dL (12.0-15.5); LYMPHOCYTES % (AUTO) 20.1 % (13-45); MEAN CORPUSCULAR HEMOGLOBIN 28.7 pg (27.0-33.4); MEAN CORPUSCULAR VOLUME 87 fl (80-97); MONOCYTES % (AUTO) 8.4 % (3-13); PLATELET COUNT 166 10^3/uL (150-450); RED BLOOD COUNT 4.35 10^6/uL (3.72-5.28); RED CELL DISTRIBUTION WIDTH 14.7 % (11.5-14.0); SEGMENTED NEUTROPHILS % (AUTO) 69.9 % (42-78); TOTAL CELLS COUNTED % (AUTO) 100 %; WHITE BLOOD COUNT 6.6 10^3/uL (4.0-10.5)
[2019-05-23 05:48] LABS: ANION GAP 7 (5-19); BLOOD UREA NITROGEN 12 mg/dL (7-20); CALCIUM 9.4 mg/dL (8.4-10.2); CARBON DIOXIDE 22 mmol/L (22-30); CHLORIDE 116 mmol/L (98-107); GLUCOSE 108 mg/dL (75-110); POTASSIUM 3.6 mmol/L (3.6-5.0); SODIUM 144.7 mmol/L (137-145)
[2019-05-23] MEDS: AMPICILLIN SODIUM 1 GM in NORMAL SALINE 50 ML IV SCH ×3 (05:54→17:58)
[2019-05-23] MEDS: HEPARIN SOD (PORCINE) 5,000 UNIT/ML 1 ML SYRINGE SUBCUT SCH ×3 (05:58→21:06)
[2019-05-23] MEDS: RIVASTIGMINE 9.5 MG/24 HR PATCH.TD24 TD SCH (07:39)
[2019-05-23] MEDS: HYDRALAZINE HCL INJ/PF 20 MG/1 ML SDV IV PRN (07:45)
[2019-05-23] MEDS: DIFLUPREDNATE OS SCH ×2 (09:18→21:05)
[2019-05-23] MEDS: LEVETIRACETAM 750 MG in NORMAL SALINE 100 ML IV SCH ×2 (09:18→21:05)
[2019-05-23] MEDS ORDERED: BISACODYL 5 MG TABEC PO PRN (13:34)
[2019-05-23] MEDS ORDERED: BISACODYL 10 MG SUPP.RECT PR ONE (13:45)
--- NOTE | 2019-05-23 19:04 | PDOC PROGRESS REPORT ---
Subjective Progress Note for:: 05/23/19 Subjective:: Per nursing and the patient's relative, she ate well this morning. She in fact had spontaneous movement of her left arm rubbing her chin and when I put my fingers in her left hand she reflexively squeezed. Reason For Visit: SEIZURES HYRDOCEPHALUS Physical Exam Vital Signs: Temp Pulse Resp BP Pulse Ox 97.8 F 77 18 146/62 H 100 05/23/19 07:40 05/23/19 07:40 05/23/19 07:40 05/23/19 09:10 05/23/19 07:40 Intake & Output 05/22/19 05/23/19 05/24/19 06:59 06:59 06:59 Intake Total 465.0 725.0 207.5 Output Total 475 375 Balance -10.0 350.0 207.5 Weight 76.1 kg 74.8 kg General appearance: PRESENT: no acute distress, well-developed Head exam: PRESENT: atraumatic, normocephalic Ear exam: PRESENT: normal external ear exam Respiratory exam: PRESENT: clear to auscultation mary, symmetrical, unlabored. ABSENT: rhonchi, tachypnea, wheezes Cardiovascular exam: PRESENT: RRR, +S1, +S2 GI/Abdominal exam: PRESENT: diminished bowel sounds, soft. ABSENT: tenderness Rectal exam: PRESENT: deferred Neurological exam: ABSENT: alert, awake Psychiatric exam: ABSENT: agitated Focused psych exam: ABSENT: restlessness Results Laboratory Results: 05/23/19 05:03 05/23/19 05:03 05/23/19 05/23/19 05:03 05:03 WBC 6.6 RBC 4.35 Hgb 12.5 Hct 37.8 MCV 87 MCH 28.7 MCHC 33.0 RDW 14.7 H Plt Count 166 Seg Neutrophils % 69.9 Lymphocytes % 20.1 Monocytes % 8.4 Eosinophils % 1.3 Basophils % 0.3 Absolute Neutrophils 4.6 Absolute Lymphocytes 1.3 Absolute Monocytes 0.6 Absolute Eosinophils 0.1 Absolute Basophils 0.0 Sodium 144.7 Potassium 3.6 Chloride 116 H Carbon Dioxide 22 Anion Gap 7 BUN 12 Creatinine 0.73 Est GFR ( Amer) > 60 Est GFR (Non-Af Amer) > 60 Glucose 108 Calcium 9.4 Magnesium 2.2 05/19/19 05/19/19 01:50 01:50 Creatine Kinase 84 CK-MB (CK-2) 2.18 Troponin I < 0.012 NT-Pro-B Natriuret Pep 114 Impressions: Head CT 05/19/19 02:13 IMPRESSION: 1. Worsening hydrocephalus, this may be related to normal pressure hydrocephalus. 2. Atrophy and chronic small vessel ischemic changes. Chest X-Ray 05/19/19 02:14 IMPRESSION: No acute disease. Guidance Fluoroscopy 05/22/19 00:00 IMPRESSION: Unsuccessful attempt a image guided lumbar puncture. Assessment and Plan - Diagnosis (1) Hydrocephalus in adult Is this a current diagnosis for this admission?: Yes Plan: 05/21/2019-the patient had a CT scan in December 2015 that showed hydrocephalus at that time. It was not addressed. The current scan reveals worsened hydrocephalus that there is moderate to severe. The family declined lumbar puncture on admission. I asked them why. The did not seem to understand fully all of the issues involved. I explained that decreasing the pressure is of paramount importance. They would like the patient to be transferred for a CONTROL PANEL BUILDER shunt. The patient has not been out of bed, is a phasic and a functional quadriplegic and I explained that neurosurgery might not accept the case. They have agreed to lumbar puncture with interventional radiology. If draining the fluid makes a noticeable difference then it may change the referral however we did discuss referral sites. They would like me to start at [facility]. We had a long discussion about her current quality of life and potential recovery. 05/22/2019-the patient was more alert this morning. The 2 possibilities are treatment of the infection with the antibiotics versus her postictal state lasting much longer than would normally be expected. She is scheduled for lumbar puncture later today. Based on those results we will discuss whether or not to consider CONTROL PANEL BUILDER shunt. If she continues to improve with the antibiotic therapy and supportive care then that will also obviate the need for a CONTROL PANEL BUILDER shunt. 05/23/2019-the interventional radiology attempt at lumbar puncture was not successful. Despite this the patient has shown significant improvement. With this in mind, and after discussion with family members, I advised not to pursue a CONTROL PANEL BUILDER shunt but rather follow-up with her neurologist for further direction. It is possible that she is tolerating the hydrocephalus, that it caused the seizure and/or is contributing to her dementia. It is difficult to be sure. But a follow-up visit with her neurologist that is scheduled for October would benefit from being moved up with this new development. (2) New onset seizure Is this a current diagnosis for this admission?: Yes Plan: 05/21/2019-seizures secondary to the moderate to severe hydrocephalus. No further seizure activity on intravenous Keppra. 05/22/2019-as noted above the seizure activity is likely due to the worsening hydrocephalus. She is scheduled for lumbar puncture today. She is more awake and alert this morning (but is sleeping at this time) and this could be related to the antibiotics or delayed resolution of the postictal state as noted above. She is on Keppra and has remained seizure-free. 05/23/2019-the seizure activity is still possibly related to the hydrocephalus although seizures can occur for numerous reasons. She will continue on the Keppra until she sees her neurologist. (3) Dementia Qualifiers: Dementia type: unspecified type Dementia behavioral disturbance: without behavioral disturbance Qualified Code(s): F03.90 - Unspecified dementia without behavioral disturbance Is this a current diagnosis for this admission?: Yes Plan: 05/21/2019-dementia is quite advanced. As noted above the patient is immobile, aphasic and a functional quadriplegic. She is able to eat when she is fed. There is a question of how safe her swallow was based on speech therapy evaluation. At this point she is obtunded and clearly unable to swallow. As noted above the family does want to pursue CONTROL PANEL BUILDER shunt placement. 05/22/2019-we are continuing her current medication regimen and will resume medications now that speech therapy feels she can handle a pured nectar thick diet although there is still significant risk of aspiration. 05/23/2019-the patient is in fact back to her baseline. I confirm this by talking to her son and another family member. With this in mind the plan is for discharge back home tomorrow as they have all of the services already in place. (4) UTI (urinary tract infection) due to Enterococcus Is this a current diagnosis for this admission?: Yes Plan: 05/21/2019-urine culture obtained on admission has grown enterococcus. I have discontinued the Rocephin and started IV ampicillin 1 g IV every 6 hours. It is unlikely that an episode of cystitis has triggered all of the events. Certainly an infection can cause hypothermia in an older patient. There was no drop in blood pressure. Her oxygen saturation dropped to 80% briefly and she is on nasal cannula. We will attempt to wean her oxygen. We will continue to monitor to see how she responds to the change in antibiotics as well as the lumbar puncture for fluid removal. 05/22/2019-the patient has received several doses of IV ampicillin. She was alert and awake earlier today. We will continue the ampicillin and monitor her progress. 05/23/2019-the patient has shown excellent response to the IV ampicillin. Will complete a course of oral therapy to complement the IV at the time of discharge. (5) Hypothermia Qualifiers: Encounter type: initial encounter Qualified Code(s): T68.XXXA - Hypothermia, initial encounter Is this a current diagnosis for this admission?: Yes Plan: 05/21/2019-the patient was hypothermic on admission. It is unclear as to the etiology. It certainly could be from infection. I am going to check her thyroid studies as well. Her temperature is back to normal at this point. 05/22/2019-the patient is back to normal temperature. We will continue to monitor. 05/23/2019-resolved (6) Hypokalemia Is this a current diagnosis for this admission?: Yes Plan: The patient's serum potassium has been low. We are administering IV potassium as her swallow has only been deemed safe as of this morning. We will continue to monitor potassium. 05/23/2019-her serum potassium is in the normal range today. Now that she is eating she should be able to maintain her serum potassium. She may benefit from 10 mEq daily. (7) Neurogenic bowel Is this a current diagnosis for this admission?: Yes Plan: The patient has not had a bowel movement since admission. I have ordered a Dulcolax suppository as well as oral Dulcolax as needed. - Time Time Spent with patient: 25-34 minutes Medications reviewed and adjusted accordingly: Yes Anticipated discharge: Home Within: within 24 hours
[2019-05-23] MEDS: LATANOPROST 0.005% OPH SOLN 2.5 ML OS SCH (21:04)
[2019-05-23] MEDS: [UNRECOGNIZED DRUG - OTHER] OS SCH (21:05)
[2019-05-24] MEDS: AMPICILLIN SODIUM 1 GM in NORMAL SALINE 50 ML IV SCH ×3 (00:37→12:32)
[2019-05-24] MEDS: HEPARIN SOD (PORCINE) 5,000 UNIT/ML 1 ML SYRINGE SUBCUT SCH (05:03)
[2019-05-24] MEDS ORDERED: POTASSIUM CHLORIDE 20 MEQ PACKET PO SCH (10:00)
[2019-05-24] MEDS: RIVASTIGMINE 9.5 MG/24 HR PATCH.TD24 TD SCH (10:43)
[2019-05-24] MEDS: LEVETIRACETAM 750 MG in NORMAL SALINE 100 ML IV SCH (10:43)
[2019-05-24] MEDS: DIFLUPREDNATE OS SCH (10:44)
[2019-05-24 12:43] VITALS: BP 132/65
--- NOTE | 2019-05-24 19:51 | PDOC DISCHARGE SUMMARY ---
General - Admit/Disc Date/PCP Admission Date/Primary Care Provider: 05/19/19 04:35 STEPHANIE ARIAS MD Discharge Date: 05/24/19 - Discharge Diagnosis (1) Hydrocephalus in adult Is this a current diagnosis for this admission?: Yes Summary: The patient has had hydrocephalus since 2015. We are unable to complete a lumbar puncture via interventional radiology. The patient's condition improved despite not removing spinal fluid. It is very possible that the patient's condition had nothing to do with the hydrocephalus however I did suggest that the patient's appointment with neurology be moved up from October. (2) New onset seizure Is this a current diagnosis for this admission?: Yes Summary: The patient exhibited seizure activity at home and then again in the emergency department. She was placed on Keppra and will be discharged on Keppra 500 mg twice daily. It was suspected that the hydrocephalus induced the seizure but the patient also had an infection. It is very possible that neither of these is related to the seizure but she will remain on Keppra until she sees her neurologist in follow-up. (3) Dementia Is this a current diagnosis for this admission?: Yes Summary: She will continue the same prehospitalization medications and follow-up with her neurologist. (4) UTI (urinary tract infection) due to Enterococcus Is this a current diagnosis for this admission?: Yes Summary: Enterococcus was isolated in the urine. It was sensitive to ampicillin and I c hanged her IV antibiotics accordingly. The day after we change antibiotics patient actually showed improvement. We will discharge her on ampicillin for an additional 10 days. (5) Hypothermia Is this a current diagnosis for this admission?: Yes Summary: Hypothermia is most likely due to the infection. The patient did not meet the criteria for sepsis however (6) Hypokalemia Is this a current diagnosis for this admission?: Yes Summary: It is unclear the exact etiology of the hypokalemia. The patient was given multiple IV dose of potassium chloride and started on oral potassium chloride. She will discharge with a daily potassium chloride dose. (7) Neurogenic bowel Is this a current diagnosis for this admission?: Yes Summary: The patient has a history of neurogenic bowel. She is on a regimen at home. I did administer a Dulcolax suppository and made Dulcolax tablets available if needed. (8) Dysphagia Is this a current diagnosis for this admission?: Yes Summary: With the patient's altered mental status her swallowing was adversely affected. It is hard to know the efficacy of her swallow prior to this admission. The patient has been eating according to her and family members. They did not report any difficulty swallowing or coughing with swallow however when speech therapy evaluated the patient it took 6 seconds to initiate swallow. She did recommend a pured diet with nectar thick liquids and explained to the family that she is still high risk for aspiration and they should take great c are with her feeding. I have ordered speech therapy to continue after discharge. - Additional Information Resuscitation Status: Do Not Resuscitate Prescriptions: Ampicillin Trihydrate [Princepen 500 mg Capsule] 1 cap PO QID 10 Days #40 cap Levetiracetam [Keppra 500 mg Tablet] 500 mg PO Q12 30 Days #60 tablet Potassium Chloride [Potassium Chloride 20 Meq Packet] 10 meq PO DAILY 30 Days #15 packet Home Medications: Difluprednate [Durezol] 1 drop OP BID 01/06/16 Memantine HCl [Namenda Xr] 1 cap PO DAILY 01/06/16 Polysorbate 80/Glycerin [Refresh Dry Eye Therapy Drops] 1 drop OP QHS 01/06/16 Rivastigmine [Exelon 9.5 mg/24 Hr Transdermal Patch] 1 ea TD QAM 01/06/16 Travoprost (Benzalkonium) [Travoprost 0.004% Eye Drop] 2.5 ml OP DAILY 01/06/16 Ampicillin Trihydrate [Princepen 500 mg Capsule] 1 cap PO QID 10 Days #40 cap 05/24/19 Levetiracetam [Keppra 500 mg Tablet] 500 mg PO Q12 30 Days #60 tablet 05/24/19 Potassium Chloride [Potassium Chloride 20 Meq Packet] 10 meq PO DAILY 30 Days #15 packet 05/24/19 History of Present Illness Patient complains of: New onset seizure History of Present Illness: PERI REILLY is a 78 year old female with a history of dementia and functional quadriplegia. She has been bedbound since 2016 status post fractured hip. While her son was attending to her he noted a seizure. EMS was called. She was brought to the emergency department. CT scan showed worsening hydrocephalus from 2016. She also had a positive urinalysis. She was hypothermic and had low potassium. She was referred to the hospital service for admission. Hospital Course Hospital Course: The patient had an interesting hospital course. It was thought that the hydroc ephalus may cause the seizure and she has been on Keppra with no further seizure activity. Attempts were made to remove spinal fluid but the interventional radiology procedure was unsuccessful. Fortunately, when narrowing the scope of antibiotics, the patient woke up and was able to eat albeit somewhat impaired. The patient's son states that this is back to her baseline. The most likely scenario is that the infection may have been responsible for her altered status. The hydrocephalus would be a consideration as the etiology of the seizure as well. The patient could have also had new onset seizure not related to the hydrocephalus or cystitis. Blood cultures were negative and sepsis was not an issue. She did exhibit marked hypokalemia and this was corrected with potassium supplementation. As the patient is back to baseline and they have 24-hour care at home, she will be discharged home. The only change of medications will be the addition of Keppra 500 mg twice daily and speech therapy is recommended a pured diet with nectar thick liquids due to her dysphasia which starts with very slow initiation of her swallow. Physical Exam Vital Signs: Temp Pulse Resp BP Pulse Ox 98.2 F 81 16 169/75 H 100 05/24/19 07:32 05/24/19 07:32 05/24/19 07:32 05/24/19 07:32 05/24/19 07:32 Intake & Output 05/23/19 05/24/19 05/25/19 06:59 06:59 06:59 Intake Total 725.0 1543.0 Output Total 375 475 Balance 350.0 1068.0 Weight 74.8 kg 74.6 kg General appearance: PRESENT: no acute distress, other - Family reports that she was up and ate breakfast and as is her pattern is fast asleep Head exam: PRESENT: atraumatic, normocephalic Respiratory exam: PRESENT: clear to auscultation mary - Anteriorly, symmetrical, unlabored. ABSENT: rales, rhonchi, tachypnea, wheezes Cardiovascular exam: PRESENT: RRR, +S1, +S2 GI/Abdominal exam: PRESENT: normal bowel sounds, soft. ABSENT: distended, tenderness Rectal exam: PRESENT: deferred Extremities exam: ABSENT: pedal edema Musculoskeletal exam: ABSENT: ambulatory Neurological exam: PRESENT: motor sensory deficit - Functional quadriplegia with aphasia, aphasic. ABSENT: awake Psychiatric exam: ABSENT: agitated Focused psych exam: ABSENT: restlessness Results Laboratory Results: 05/23/19 05:03 05/23/19 05:03 05/19/19 06:32 Blood Blood Culture - Final NO GROWTH IN 5 DAYS 05/19/19 04:00 Blood Blood Culture - Final NO GROWTH IN 5 DAYS 05/19/19 05/19/19 01:50 01:50 Creatine Kinase 84 CK-MB (CK-2) 2.18 Troponin I < 0.012 NT-Pro-B Natriuret Pep 114 Impressions: Head CT 05/19/19 02:13 IMPRESSION: 1. Worsening hydrocephalus, this may be related to normal pressure hydrocephalus. 2. Atrophy and chronic small vessel ischemic changes. Chest X-Ray 05/19/19 02:14 IMPRESSION: No acute disease. Guidance Fluoroscopy 05/22/19 00:00 IMPRESSION: Unsuccessful attempt a image guided lumbar puncture. Qualifiers - * PATIENT BEING DISCHARGED WITH ANY OF THE FOLLOWING DIAGNOSIS: No Acute Heart Failure - Is this a Heart Failure Patient?: No
== END 2019-05-24 13:11 | disposition home health service (06) | DRG 56 ==
LOC: ER 01:27 → OBSVTOIN 04:35 → EH 04:35 → INTOOBSV 04:35 → 3W 11:56
PROVIDERS: ADMIT Internal Medicine; ATTEND Internal Medicine
PROC: 00JU3ZZ Inspection of Spinal Canal, Percutaneous Approach (ICD-10-PCS; principal; 2019-05-22)
DX: G91.9 Hydrocephalus, unspecified (principal); R53.2 Functional quadriplegia; N39.0 Urinary tract infection, site not specified; K59.2 Neurogenic bowel, not elsewhere classified; R56.9 Unspecified convulsions; F03.90 Unspecified dementia, unspecified severity, without behavioral disturbance, psychotic disturbance, mood disturbance, and anxiety; B95.2 Enterococcus as the cause of diseases classified elsewhere; R68.0 Hypothermia, not associated with low environmental temperature; E87.6 Hypokalemia; R13.10 Dysphagia, unspecified; Z66 Do not resuscitate; Z79.899 Other long term (current) drug therapy; Z74.01 Bed confinement status; Z90.10 Acquired absence of unspecified breast and nipple; Z82.49 Family history of ischemic heart disease and other diseases of the circulatory system
CPT/HCPCS: 36415; 70450; 71045; 77003; 80048; 80053; 81001; 82550; 82553; 82962; 83690; 83735; 83880; 84439; 84443; 84481; 84484; 85025; 85027; 85610; 85730; 87040; 87086; 87088; 87186; 93005; 93010; 96374; 99285; G0378; J0290; J0360; J0696; J1120; J1644; J1953; J2060; J3480; J3490; J7042; J7050

== ENCOUNTER 2019-06-01 17:03 | Emergency (ER) | payer MEDICARE ==
[2019-06-01 17:53] LABS: VENOUS BLOOD BASE EXCESS 0.8 mmol/L; VENOUS BLOOD HCO3 28.1 mmol/L (20-32); VENOUS BLOOD PCO2 53.7 mmHg (35-63); VENOUS BLOOD PH 7.34 (7.30-7.42)
[2019-06-01 17:56] LABS: INTERNATIONAL RATION (INR) 0.92; PROTHROMBIN TIME 12.3 SEC (11.4-15.4)
[2019-06-01 17:59] LABS: ABSOLUTE BASOPHILS # (AUTO) 0.1 10^3/uL (0.0-0.2); ABSOLUTE EOSINOPHILS # (AUTO) 0.1 10^3/uL (0.0-0.6); ABSOLUTE MONOCYTES (AUTO) 0.4 10^3/uL (0.1-1.4); ABSOLUTE NEUT (AUTO) 5.5 10^3/uL (1.7-8.2); EOSINOPHILS % (AUTO) 1.2 % (0-6); HEMATOCRIT 38.3 % (36.0-47.0); HEMOGLOBIN 12.5 g/dL (12.0-15.5); LYMPHOCYTES % (AUTO) 24.7 % (13-45); MEAN CORPUSCULAR HEMOGLOBIN 28.6 pg (27.0-33.4); MEAN CORPUSCULAR HGB CONC 32.6 g/dL (32.0-36.0); MEAN CORPUSCULAR VOLUME 88 fl (80-97); MONOCYTES % (AUTO) 4.5 % (3-13); PLATELET COUNT 216 10^3/uL (150-450); RED BLOOD COUNT 4.37 10^6/uL (3.72-5.28); RED CELL DISTRIBUTION WIDTH 14.7 % (11.5-14.0); SEGMENTED NEUTROPHILS % (AUTO) 68.6 % (42-78); TOTAL CELLS COUNTED % (AUTO) 100 %
[2019-06-01 18:02] LABS: ALANINE AMINOTRANSFERASE 36 U/L (9-52); ALBUMIN 3.5 g/dL (3.5-5.0); ALKALINE PHOSPHATASE 119 U/L (38-126); ANION GAP 5 (5-19); ASPARTATE AMINO TRANSFERASE 34 U/L (14-36); BILIRUBIN,DIRECT 0.2 mg/dL (0.0-0.4); BILIRUBIN,TOTAL 0.2 mg/dL (0.2-1.3); BLOOD UREA NITROGEN 16 mg/dL (7-20); CARBON DIOXIDE 30 mmol/L (22-30); CHLORIDE 108 mmol/L (98-107); GLUCOSE 99 mg/dL (75-110); POTASSIUM 4.9 mmol/L (3.6-5.0); SODIUM 142.6 mmol/L (137-145); TOTAL PROTEIN 6.4 g/dL (6.3-8.2)
--- NOTE | 2019-06-01 18:02 | EKG REPORT ---
SEVERITY:- OTHERWISE NORMAL ECG - SINUS RHYTHM MINIMAL ST DEPRESSION, LATERAL LEADS : Confirmed by: Fidencio Cooley MD 01-Jun-2019 18:01:18
--- NOTE | 2019-06-01 18:16 | RADIOLOGY REPORT (SQ) ---
EXAM DESCRIPTION: CHEST SINGLE VIEW COMPLETED DATE/TIME: 06/01/2019 6:06 pm REASON FOR STUDY: Sepsis alert COMPARISON: 05/19/2019 EXAM PARAMETERS: NUMBER OF VIEWS: One view. TECHNIQUE: Single frontal radiographic view of the chest acquired. RADIATION DOSE: NA LIMITATIONS: None. FINDINGS: LUNGS AND PLEURA: Stable elevation of the left hemidiaphragm. MEDIASTINUM AND HILAR STRUCTURES: No masses. Contour normal. HEART AND VASCULAR STRUCTURES: Heart normal in size. Normal vasculature. BONES: No acute findings. HARDWARE: None in the chest. OTHER: No other significant finding. IMPRESSION: Stable elevation of the left hemidiaphragm. No acute abnormality of the lungs in AP por table projection. TECHNICAL DOCUMENTATION: JOB ID: [id number] [employer]- All Rights Reserved Reading location - IP/workstation name: [email or web address]
[2019-06-01 18:44] LABS: APPEARANCE,URINE CLEAR; BILIRUBIN,URINE NEGATIVE (NEGATIVE); COLOR,URINE STRAW; GLUCOSE, URINE NEGATIVE (NEGATIVE); KETONES,URINE NEGATIVE (NEGATIVE); LEUKOCYTE ESTERASE,URINE NEGATIVE (NEGATIVE); NITRITE,URINE NEGATIVE (NEGATIVE); PROTEIN,URINE NEGATIVE (NEGATIVE); URINE SPECIFIC GRAVITY 1.006; UROBILINOGEN,URINE NEGATIVE mg/dL (<2.0)
--- NOTE | 2019-06-01 22:05 | ER Document Report ---
Entered by CAIO PITTS SCRIBE 06/01/19 1808 Acting as scribe for:EMELY NOWAK DO ED General - General Stated Complaint: ALTERED MENTAL STATUS Time Seen by Provider: 06/01/19 17:36 Primary Care Provider: STEPHANIE ARIAS MD [Primary Care Provider] - Follow up as needed Mode of Arrival: Stretcher Information source: Relative Notes: Patient is a 78 year old female with advanced dementia, moderate to severe hydrocephalus, seizures who is bed bound and nonverbal presents to the emergency department accompanied by caregiver complaining of altered mental status onset this afternoon. Caregiver states the patient is normally able to open eyes, track movements and communicate via facial expressions. He states this afternoon when attempting to give the patient her medications, she would not wake up and appeared "out of it" so he proceeded to call EMS. He states the patient was at he baseline this morning. Patient is currently prescribed Keppra, ampicillin, potassium, Namenda and Levetiracetam. TRAVEL OUTSIDE OF THE [place] IN LAST 30 DAYS: No - Related Data Allergies/Adverse Reactions: No Known Allergies Allergy (Unverified 01/06/16 02:25) Past Medical History - General Information source: Relative Cannot obtain history due to: Other - Social History Smoking Status: Never Smoker Cigarette use (# per day): No Chew tobacco use (# tins/day): No Smoking Education Provided: No Frequency of alcohol use: None Drug Abuse: None Lives with: Family Family History: Hypertension Neurological Medical History: Reports: Hx Seizures, Other - Hydrocephalus, brendan ntia Psychiatric Medical History: Reports: Hx Dementia Past Surgical History: Reports: Hx Mastectomy, Hx Orthopedic Surgery - Rt knee Review of Systems - Review of Systems Notes: ROS obtained from caregiver. Constitutional: See HPI EENT: No symptoms reported Cardiovascular: No symptoms reported Respiratory: No symptoms reported Gastrointestinal: No symptoms reported Genitourinary: No symptoms reported Female Genitourinary: No symptoms reported Musculoskeletal: No symptoms reported Skin: No symptoms reported Hematologic/Lymphatic: No symptoms reported Neurological/Psychological: See HPI, Dementia -: Yes All other systems reviewed and negative Physical Exam - Vital signs Vitals: Resp Pulse Ox 14 100 06/01/19 17:10 06/01/19 17:10 - Notes Notes: GENERAL: Eyes closed. Demented at baseline, see neuro. No acute distress. HEAD: Normocephalic, atraumatic. EYES: Left eye is opacified. Extraocular movements intact. Right pupil is round and reactive ENT: Oral mucosa moist, tongue midline. NECK: Full range of motion. Supple. Trachea midline. LUNGS: Clear to auscultation bilaterally, no wheezes, rales, or rhonchi. No respiratory distress. HEART: Regular rate and rhythm. No murmurs, gallops, or rubs. ABDOMEN: Soft, non-tender. Non-distended. Bowel sounds present in all 4 quadrants. No guarding, rigidity, or rebound. EXTREMITIES: Moves all 4 extremities spontaneously but minimally bilateral upper extremities are contracted into a flexed position. No edema, radial and dorsalis pedis pulses 2/4 bilaterally. No cyanosis. NEUROLOGICAL: Demented at baseline. Nonverbal. Initially will not follow commands to open eyes and will resist attempts to open eye.. When standing on the right side, which caregiver states is the patient's good side, patient will open her eyes and track me. Patient will follow commands to squeeze fingers but will not follow commands release fingers. Will spontaneously scratch chin with left arm. Will have picking motions with right arm. PSYCH: Demented at baseline. SKIN: Warm, dry, normal turgor. No rashes or lesions noted. Course - Re-evaluation Re-evalutation: 06/01/19 20:53 CBC unremarkable, coags normal, venous blood gas unremarkable, CMP unremarkable, lactic acid normal, cardiac enzymes negative, urinalysis unremarkable, blood cultures and urine cultures pending. Chest x-ray shows no acute process. Patient has now started to wake up and interact at her baseline according to family. No acute process identified. Patient will be discharged to home. Family agreeable with and thankful for this plan. - Vital Signs Vital signs: Temp Pulse Resp BP Pulse Ox 97.2 F 15 153/76 H 98 06/01/19 20:30 06/01/19 20:30 06/01/19 20:30 06/01/19 20:30 - Laboratory Result Diagrams: 06/01/19 17:20 06/01/19 17:20 Laboratory results interpreted by me: 06/01/19 06/01/19 17:20 17:20 RDW 14.7 H Chloride 108 H - EKG Interpretation by Me Additional EKG results interpreted by me: 06/01/19 20:53 EKG shows sinus rhythm at a rate of 62, no ST segment elevations, EKG read says there is some depressions in the lateral leads but I feel this is related to artifact, no T wave inversions, there is T wave flattening in aVL, rapid R wave progression, no significant change from prior EKG per my interpretation. Discharge - Discharge Clinical Impression: Functional quadriplegia Altered mental status Qualifiers: Altered mental status type: transient alteration of awareness Qualified Code(s): R40.4 - Transient alteration of awareness Dementia Qualifiers: Dementia type: Alzheimer's disease Alzheimer's disease onset: late-onset Dementia behavioral disturbance: without behavioral disturbance Qualified Code(s): G30.1 - Alzheimer's disease with late onset; F02.80 - Dementia in other diseases classified elsewhere without behavioral disturbance Condition: Stable Disposition: HOME, SELF-CARE Additional Instructions: Today we did not see any signs of pneumonia, heart failure, heart attack, urinary tract infection or other abnormalities on her blood work. Please continue to follow-up with your primary care physician as an outpatient. Referrals: STEPHANIE ARIAS MD [Primary Care Provider] - Follow up as needed I personally performed the services described in the documentation, reviewed and edited the documentation which was dictated to the scribe in my presence, and it accurately records my words and actions.
[2019-06-01 22:06] VITALS: BP 161/85
== END 2019-06-01 20:10 | disposition home or self-care (01) ==
LOC: ER 17:03
DX: R53.2 Functional quadriplegia (principal); R40.4 Transient alteration of awareness; G30.1 Alzheimer's disease with late onset; F02.80 Dementia in other diseases classified elsewhere, unspecified severity, without behavioral disturbance, psychotic disturbance, mood disturbance, and anxiety; Z79.899 Other long term (current) drug therapy
CPT/HCPCS: 36415; 51702; 71045; 80053; 81001; 82803; 82962; 83605; 84484; 85025; 85610; 87040; 87086; 93005; 93010; 99285

== ENCOUNTER → 2019-07-25 | Outpatient (CLI) | payer MEDICARE ==
--- NOTE | 2019-07-25 10:50 | RADIOLOGY REPORT (SQ) ---
EXAM DESCRIPTION: LUBAIE SWALLOW COMPLETED DATE/TIME: 07/25/2019 10:33 am REASON FOR STUDY: CHRONIC COUGH (R05), DYSPHAGIA (R13.10) R05 COUGH R13.10 DYSPHAGIA, UNSPECIFIED COMPARISON: None. TECHNIQUE: Videofluoroscopic swallowing examination was performed in conjunction with speech patholo gy. Videofluoroscopic imaging was obtained and reviewed and these are the findings: RADIATION DOSE: Fluoro time 3.55 minutes 2 images saved to PACS. LIMITATIONS: None FINDINGS: The patient was brought into the fluoro room and placed upright on a modified barium swall ow chair. The patient was then given multiple consistencies mixed with barium to swallow under live fluoroscopic video guidance. According to the Speech Pathologist there was no penetration or aspirat ion. Please refer to the speech pathology report for further details. IMPRESSION: NO EVIDENCE OF PENETRATION OR ASPIRATION. PLEASE SEE SPEECH PATHOLOGIST REPORT FOR OTHER FINDINGS AND RECOMMENDATIONS. COMMENT: None Quality ID [id number]: Final reports for procedures using fluoroscopy that document radiation exposure misbah clarita, or exposure time and number of fluorographic images (if radiation exposure indices are not avail able) TECHNICAL DOCUMENTATION: JOB ID: [id number] [employer]- All Rights Reserved Reading location - IP/workstation name: [id number]
--- NOTE | 2019-07-25 17:21 | ST Modified Barium Swallow ---
Recommendation - Recommendations Recommendations: Recommend universal aspiration precautions. Patient did not demonstrate aspiration on this study, but is at high risk of aspiration due to significantly delayed swallow reflex. Recommend thin liquids and very soft solids/puree. Family voiced understanding. Medical Diagnoses - Medical Diagnoses Medical Diagnosis Description & ICD-10 Code(s): cough R05, dysphagia R13.10 Other Medical Diagnoses/Co-Morbidities: history of possible seizure disorder, dementia - ICD-10 Tx Diagnosis Coding (1) Cough ICD-10 Code(s): R05 - COUGH (2) Dysphagia ICD-10 Code(s): R13.10 - DYSPHAGIA, UNSPECIFIED ST Modified Barium Swallow - General Date: 07/25/19 Referring Physician: Dr. Stein Risks/Precautions: Falls, Aspiration Date of Onset: 07/14/18 - approximate onset, ongoing swallowing deficits Reason for Referral: assess for aspiration - History -: Medical - patient has been dependent for feeding for several months now. Patient had prior home health speech therapy, no signs of aspiration per family report. Study indicated to ensure aspiration is not occurring. Medications: no list provided Allergies: none reported - Functional Status Prior Functional Status: INDEPENDENT: feeding - dependent Current Functional Limitations: feeding - dependent - Subjective Patient/caregiver goal(s): r/o aspiration Cognitive-Linguistic Function: Severely Impaired Speech Intelligibility: Non-verbal Current PO diet: Pureed, Regular - liquids Pain: unable to communicate, no signs/symptoms of pain - Objective Assessment: Upright, Left Lateral - Food Trials Used Food trials used: Thin liquids, Pureed The patient: fed by caregiver, via cup, via spoon - Oral-Motor Skills Dentition: Partial - Fall Risk Assessment Medications/Conditions that increase fall risks include: Antidepressants, sedatives, anti-arrhythmic, diuretic, benzodiazipenes, neuroleptics. BP regula tion problems, cardiac problems, balance or gait deficits, neurological problems. Fall Risk Actions Taken: No action needed - patient bed bound - Treatment / Educational Needs: Treatment/Education Needs: Treatment consisted of patient education on the role of the Speech Pathologist. Patient's plan of care and golas were communicated as well as scheduling and attendance policies. Recommendations for initial home program were shared. Patient demonstrated understanding and verbalized agreement. - Impression/Summary Laryngeal Penetration: No Tracheal Aspiration: no Risk of Aspiration: Moderate Evaluation and Findings: Patient presents with significant oral holding and very delayed pharyngeal swallow. No aspiration seen despite prolonged holding for up to 20 seconds, oral and pharyngeal phase delayed. Patient is unable to follow direction for skilled intervention. Recommend continuing with current diet and strategies. - Recommendations Solid diet recommendations: Pureed Liquid Diet Modification: Thin Strict aspiration precautions: Yes Dysphagia therapy with RN LICENSED PRACTICAL: no Recommended techniques: Fully Upright During Meal, Small Bites and Sips Supervision: requires assistance Information, Precautions and Recommendations: Family Member (Written), Family Member (Verbal) - Time Total Time: 30 - Plan of Care Strategies to optimize patient understanding include:: ongoing assessment of educational needs, implementation of educational strategies, and re-education. - - -: Thank you for the opportunity to work with this patient and his/her family. Should you have any questions about this patient's plan or progress, I can be reached at [phone].
== END ==
LOC: RAD 07:55
PROVIDERS: ATTEND Otolaryngology
DX: R05 Cough (principal); R13.10 Dysphagia, unspecified
CPT/HCPCS: 74230

== ENCOUNTER 2019-08-09 19:11 | Inpatient (IN) | payer MEDICARE ==
[2019-08-09] MEDS ORDERED: LEVETIRACETAM 1000 MG/NACL-ISO 1,000 MG/100 ML RTUPB IV ONE (20:07)
--- NOTE | 2019-08-09 20:18 | ER Document Report ---
ED Seizure - General Chief Complaint: Seizure Stated Complaint: POSSIBLE SEIZURE Time Seen by Provider: 08/09/19 20:06 Notes: Patient is a 78-year-old female that comes emergency department for chief complaint of seizure, family states that prior to arrival at home she had a seizure that lasted about 1 minute followed by a state where she was minimally responsive and interactive. She comes by EMS. She lives at home with her family. On my initial evaluation patient was currently having a seizure that started less than 30 seconds ago, patient had a seizure that lasted about 1.5 minutes and all. Patient is currently postictal on my evaluation. History was from son and at bedside. They states she has a history of hydrocephalu s, she does have a history of seizures that started in May 2019, she is on Keppra and she has been compliant with her medications. States that they also were told that she might not be having seizures from hydrocephalus but she may be getting seizures when she "gets an infection". They deny fever, vomiting, or any obvious sick symptoms. Patient has been bedbound since 2015, has advanced dementia. - Related Data Allergies/Adverse Reactions: No Known Allergies Allergy (Unverified 01/06/16 02:25) Past Medical History - General Information source: Relative, Emergency Med Personnel - Social History Smoking Status: Never Smoker Frequency of alcohol use: None Drug Abuse: None Lives with: Family Family History: Hypertension Neurological Medical History: Reports: Hx Seizures, Other - Normal pressure hydrocephalus Renal/ Medical History: Denies: Hx Peritoneal Dialysis Psychiatric Medical History: Reports: Hx Dementia Denies: Hx Depression Past Surgical History: Reports: Hx Mastectomy, Hx Orthopedic Surgery - Rt knee - Immunizations Immunizations up to date: Yes Hx Diphtheria, Pertussis, Tetanus Vaccination: Yes Review of Systems - Review of Systems Constitutional: See HPI EENT: No symptoms reported Cardiovascular: No symptoms reported Respiratory: No symptoms reported Gastrointestinal: No symptoms reported Genitourinary: No symptoms reported Female Genitourinary: No symptoms reported Musculoskeletal: No symptoms reported Skin: No symptoms reported Hematologic/Lymphatic: No symptoms reported Neurological/Psychological: See HPI Physical Exam - Vital signs Vitals: Resp 15 08/09/19 19:24 - Notes Notes: GENERAL: Sluggish, awake but minimally responsive HEAD: Normocephalic, atraumatic. EYES: Left eye appears blind. Right eye has reactive pupil. Normal EOMs. ENT: Oral mucosa moist, tongue midline. Oropharynx unremarkable. Airway patent. NECK: Full range of motion. Supple. Trachea midline. LUNGS: Clear to auscultation bilaterally, no wheezes, rales, or rhonchi. No respiratory distress. HEART: Borderline tachycardia. No murmur ABDOMEN: Soft, non-tender. Non-distended. EXTREMITIES: Moves all 4 extremities spontaneously. No edema, normal radial and dorsalis pedis pulses bilaterally. No cyanosis. BACK: no cervical, thoracic, lumbar midline tenderness. No saddle anesthesia, normal distal neurovascular exam. Moves all extremities in full range of motion. NEUROLOGICAL: Sluggish, minimally responsive. She does arouse spontaneously however. GCS of 12. Cranial nerves II through XII grossly intact. SKIN: Warm, dry, normal turgor. No rashes or lesions noted. Course - Re-evaluation Re-evalutation: Patient postictal, hypertensive initially in the 200s right absence seizure but now on recheck in the 180s systolic. She is not tachycardic after the seizure resolved. She is not febrile. Oxygen saturation 100%, no tachypnea, soft abdomen. Loading with Keppra, CAT scan of the head and work-up initiated. On review of previous records it was noted that an LP was attempted even with interventional radiology on her admission in May for seizures and AMS but this was unable to be obtained. It was also found that after treating her UTI her men uma status returned to baseline and she has been kept on Keppra. 08/09/19 21:38 I spoke to son and I spoke to , they state the patient does have DNR paperwork. She they states she is also on involved with hospice now, they called the hospice, they state that they wanted to clarify with us and with hospice that patient is to be treated but not to be resuscitated. CBC unremarkable, chemistry nonspecific, CAT scan of the head showing normal pressure hydrocephalus without significant change from prior, chest x-ray unremarkable. Urinalysis shows positive nitrites with large amount of white blood cells from catheterized urine sample. Culture placed, starting Rocephin. Because of patient's multiple seizures and urinary tract infection with change in mental status will discuss with hospitalist for admission. Discussed with Dr. Katz, internal medicine, patient admitted to telemetry full admission. - Vital Signs Vital signs: Temp Pulse Resp BP Pulse Ox 11 L 189/110 H 99 08/09/19 22:00 08/09/19 20:31 08/09/19 22:00 - Laboratory Result Diagrams: 08/09/19 20:15 08/09/19 20:15 Laboratory results interpreted by me: 08/09/19 08/09/19 08/09/19 19:50 20:15 20:15 MCHC 31.9 L RDW 15.2 H Carbon Dioxide 20 L Est GFR (MDRD) Non-Af 55 L Glucose 141 H Alkaline Phosphatase 169 H Urine Protein 30 H Urine Blood SMALL H Urine Nitrite POSITIVE H Ur Leukocyte Esterase LARGE H Discharge - Discharge Clinical Impression: Seizure UTI (urinary tract infection) Qualifiers: Urinary tract infection type: site unspecified Hematuria presence: without hematuria Qualified Code(s): N39.0 - Urinary tract infection, site not specified Altered mental status Qualifiers: Altered mental status type: unspecified Qualified Code(s): R41.82 - Altered mental status, unspecified Condition: Stable Disposition: ADMITTED INPATIENT Admitting Provider: Sterling (Hospitalist) Unit Admitted: Telemetry
[2019-08-09 20:33] LABS: ABSOLUTE BASOPHILS # (AUTO) 0.1 10^3/uL (0.0-0.2); ABSOLUTE LYMPHOCYTES (AUTO) 1.9 10^3/uL (0.5-4.7); ABSOLUTE MONOCYTES (AUTO) 0.3 10^3/uL (0.1-1.4); ABSOLUTE NEUT (AUTO) 2.9 10^3/uL (1.7-8.2); EOSINOPHILS % (AUTO) 0.6 % (0-6); HEMATOCRIT 44.5 % (36.0-47.0); HEMOGLOBIN 14.2 g/dL (12.0-15.5); LYMPHOCYTES % (AUTO) 36.7 % (13-45); MEAN CORPUSCULAR HGB CONC 31.9 g/dL (32.0-36.0); MEAN CORPUSCULAR VOLUME 88 fl (80-97); MONOCYTES % (AUTO) 6.2 % (3-13); PLATELET COUNT 230 10^3/uL (150-450); RED BLOOD COUNT 5.09 10^6/uL (3.72-5.28); RED CELL DISTRIBUTION WIDTH 15.2 % (11.5-14.0); SEGMENTED NEUTROPHILS % (AUTO) 55.5 % (42-78); TOTAL CELLS COUNTED % (AUTO) 100 %; WHITE BLOOD COUNT 5.2 10^3/uL (4.0-10.5)
[2019-08-09 20:42] LABS: APPEARANCE,URINE CLOUDY; BILIRUBIN,URINE NEGATIVE (NEGATIVE); COLOR,URINE YELLOW; GLUCOSE, URINE NEGATIVE (NEGATIVE); KETONES,URINE NEGATIVE (NEGATIVE); LEUKOCYTE ESTERASE,URINE LARGE (NEGATIVE); NITRITE,URINE POSITIVE (NEGATIVE); PROTEIN,URINE 30 mg/dL (NEGATIVE); URINE SPECIFIC GRAVITY 1.015; UROBILINOGEN,URINE NEGATIVE mg/dL (<2.0)
[2019-08-09 20:51] LABS: ALKALINE PHOSPHATASE 169 U/L (38-126); ANION GAP 17 (5-19); ASPARTATE AMINO TRANSFERASE 32 U/L (14-36); BILIRUBIN,DIRECT 0.1 mg/dL (0.0-0.4); BILIRUBIN,TOTAL 0.3 mg/dL (0.2-1.3); BLOOD UREA NITROGEN 20 mg/dL (7-20); CALCIUM 9.9 mg/dL (8.4-10.2); CARBON DIOXIDE 20 mmol/L (22-30); CHLORIDE 105 mmol/L (98-107); GLUCOSE 141 mg/dL (75-110); TOTAL PROTEIN 7.2 g/dL (6.3-8.2)
[2019-08-09 20:52] LABS: ALCOHOL < 10 mg/dL (NONE DETECTED)
[2019-08-09 20:56] LABS: URINE AMPHETAMINES SCREEN NEGATIVE; URINE BARBITURATES SCREEN NEGATIVE; URINE BENZODIAZEPINES SCREEN NEGATIVE; URINE COCAINE SCREEN NEGATIVE; URINE MARIJUANA (THC) SCREEN NEGATIVE; URINE METHADONE SCREEN NEGATIVE; URINE PHENCYCLIDINE SCREEN NEGATIVE
[2019-08-09] MEDS ORDERED: CEFTRIAXONE 1 GM/D5W RTU 1 GM/50 ML RTUPB IV ONE (21:02)
--- NOTE | 2019-08-09 21:31 | RADIOLOGY REPORT (SQ) ---
EXAM DESCRIPTION: CT HEAD WITHOUT IV CONTRAST COMPLETED DATE/TME: 08/09/2019 20:07 CLINICAL HISTORY: 78 years, Female, AMS seizures, very hypertensive COMPARISON: Prior study from 05/19/2019 TECHNIQUE: Noncontrast CT of the head was performed. Coronal and sagittal reformations were created. Images stored on PACS. All CT scanners at this facility use dose modulation, iterative reconstruction, and/or weight based dosing when appropriate to reduce radiation dose to as low as reasonably achievable (ALARA). [facility]: Dose Right [facility]: CareDose [facility]: Dose Right [facility]: Teradose 4D [facility]: [employer] LIMITATIONS: None. FINDINGS: Evaluation of the brain parenchyma reveals moderate to severe periventricular and patchy subcortical white matter low attenuation. This appears fairly similar in configuration to the previous examination performed on 05/19/2019. The ventricles are severely enlarged, out of proportion to that of sulcal enlargement though similar to the prior. No acute intracranial hemorrhage, mass effect, or extra-axial fluid is seen. An area of encephalomalacia is also noted about the right anterior/inferior temporal lobe which appears similar to the prior. A similar finding is suspected about the left anterior/inferior temporal lobe. Globes and orbits show no acute abnormality. Paranasal sinuses and mastoid air cells are clear. No depressed skull fractures. IMPRESSION: No acute intracranial abnormality. Severe ventriculomegaly, out of proportion to sulcal enlargement. This appears similar to the previous exam dated 05/19/2019, and likely indicates a component of normal pressure hydrocephalus. Moderate to severe chronic microvascular ischemic change and generalized atrophy. TECHNICAL DOCUMENTATION: Quality ID # [id number]: Final reports with documentation of one or more dose reduction techniques (e.g., Automated exposure control, adjustment of the mA and/or kV according to patient size, use of iterative reconstruction technique) copyright 2010 [employer]- All Rights Reserved
--- NOTE | 2019-08-09 21:35 | RADIOLOGY REPORT (SQ) ---
XR CHEST 1 VIEW EXAM DATE: 08/09/2019 8:06 PM CDT HISTORY: AMS. COMPARISON: 06/01/2019 FINDINGS: The heart size is within normal limits. No consolidation, pleural effusion, or pneumothorax is seen. The bony thorax is intact. The left hemidiaphragm is elevated. IMPRESSION: No evidence of acute cardiopulmonary disease.
[2019-08-09] MEDS ORDERED: MAG HYDROX/AL HYDROX/SIMETH SUSP 30 ML UDCUP PO PRN (21:52)
[2019-08-09] MEDS ORDERED: IPRATROPIUM/ALBUTEROL 0.5-2.5 MG/3 ML AMPUL NEB PRN (21:52)
[2019-08-09] MEDS ORDERED: ACETAMINOPHEN 325 MG TABLET PO PRN (21:52)
[2019-08-09] MEDS ORDERED: NORMAL SALINE 1000 ML 1,000 ML IV ONE (21:54)
[2019-08-09] MEDS ORDERED: NITROGLYCERIN 2% OINTMENT 1 GM PACKET ONE (22:50)
[2019-08-09] MEDS ORDERED: FUROSEMIDE INJ/PF 40 MG/4 ML SDV ONE (22:51)
[2019-08-09] MEDS ORDERED: FUROSEMIDE INJ/PF 40 MG/4 ML SDV IV ONE (22:56)
[2019-08-09] MEDS ORDERED: NITROGLYCERIN 2% OINTMENT 1 GM PACKET TP ONE (22:56)
[2019-08-10] MEDS: HEPARIN SOD (PORCINE) 5,000 UNIT/ML 1 ML VIAL SUBCUT SCH ×4 (00:46→21:21)
--- NOTE | 2019-08-10 05:53 | PDOC H&P ---
History of Present Illness Admission Date/PCP: 08/09/19 22:01 CARLOS PETE MD Patient complains of: Seizure History of Present Illness: PERI REILLY is a 78 year old female with a past medical history of hospice for normal pressure hydrocephalus, seizure, advanced dementia chronic bedbound state, nonverbal requiring 100% assistance who who presents 1 hour after the onset of a tonic-clonic seizure. In the emergency room she receives IV Keppra and is found to have a UA with leukocytosis. She receives Rocephin and referred to the hospitalist for admission. Only at bedside decline invasive management such as LP or central line wishing treatment of acute seizure and UTI. Past Medical History Cardiac Medical History: Reports: None Neurological Medical History: Reports: Seizures, Other - Normal pressure hydrocephalus Psychiatric Medical History: Reports: Dementia Denies: Depression Past Surgical History Past Surgical History: Reports: Mastectomy, Orthopedic Surgery - Rt knee Social History Information Source: Relative, [facility] Records Lives with: Family Smoking Status: Never Smoker Frequency of Alcohol Use: None Hx Recreational Drug Use: No Drugs: None Hx Prescription Drug Abuse: No - Advance Directive Resuscitation Status: Do Not Resuscitate Family History Family History: Hypertension Parental Family History Reviewed: Yes Children Family History Reviewed: Yes Sibling(s) Family History Reviewed.: Yes Medication/Allergy Home Medications: Difluprednate [Durezol] 1 drop OS BID 08/09/19 Doxycycline Hyclate [Vibramycin 100 mg Tablet] 1 cap PO BID 08/09/19 Levetiracetam [Keppra] 1 tab PO BID 08/09/19 Memantine HCl [Memantine HCl ER] 1 cap PO DAILY 08/09/19 Allergies/Adverse Reactions: No Known Allergies Allergy (Unverified 01/06/16 02:25) Review of Systems ROS unobtainable: Due to mental status Physical Exam Vital Signs: Temp Pulse Resp BP Pulse Ox 98.7 F 69 17 182/96 H 100 08/10/19 04:46 08/10/19 04:46 08/10/19 04:46 08/10/19 04:46 08/10/19 04:46 Intake & Output 08/08/19 08/09/19 08/10/19 11:59 11:59 11:59 Intake Total 150 Balance 150 Weight 67.7 kg General appearance: PRESENT: no acute distress, well-developed, well-nourished Head exam: PRESENT: atraumatic, normocephalic Eye exam: PRESENT: conjunctiva pink, EOMI, PERRLA. ABSENT: scleral icterus Ear exam: PRESENT: normal external ear exam Mouth exam: PRESENT: moist, tongue midline Neck exam: ABSENT: carotid bruit, JVD, lymphadenopathy, thyromegaly Respiratory exam: PRESENT: clear to auscultation mary. ABSENT: rales, rhonchi, wheezes Cardiovascular exam: PRESENT: RRR. ABSENT: diastolic murmur, rubs, systolic murmur Pulses: PRESENT: normal dorsalis pedis pul Vascular exam: PRESENT: normal capillary refill GI/Abdominal exam: PRESENT: normal bowel sounds, soft. ABSENT: distended, guar ding, mass, organolmegaly, rebound, tenderness Rectal exam: PRESENT: deferred Extremities exam: PRESENT: full ROM. ABSENT: calf tenderness, clubbing, pedal edema Neurological exam: PRESENT: altered, CN II-XII grossly intact, aphasic. ABSENT: motor sensory deficit Psychiatric exam: PRESENT: flat affect. ABSENT: homicidal ideation, suicidal ideation Skin exam: PRESENT: dry, intact, warm. ABSENT: cyanosis, rash Results Laboratory Results: 08/09/19 20:15 08/09/19 20:15 08/09/19 08/09/19 08/09/19 19:50 20:15 20:15 WBC 5.2 RBC 5.09 Hgb 14.2 Hct 44.5 MCV 88 MCH 28.0 MCHC 31.9 L RDW 15.2 H Plt Count 230 Seg Neutrophils % 55.5 Sodium 142.3 Potassium 4.0 Chloride 105 Carbon Dioxide 20 L Anion Gap 17 BUN 20 Creatinine 0.98 Est GFR ( Amer) > 60 Glucose 141 H Calcium 9.9 Magnesium 2.2 Total Bilirubin 0.3 AST 32 Alkaline Phosphatase 169 H Total Protein 7.2 Albumin 4.0 Urine Color YELLOW Urine Appearance CLOUDY Urine pH 6.0 Ur Specific [place] 1.015 Urine Protein 30 H Urine Glucose (UA) NEGATIVE Urine Ketones NEGATIVE Urine Blood SMALL H Urine Nitrite POSITIVE H Ur Leukocyte Esterase LARGE H Urine WBC (Auto) >182 Urine RBC (Auto) 5 08/09/19 20:15 Troponin I < 0.012 Impressions: Chest X-Ray 08/09/19 20:06 IMPRESSION: No evidence of acute cardiopulmonary disease. Head CT 08/09/19 20:07 IMPRESSION: No acute intracranial abnormality. Severe ventriculomegaly, out of proportion to sulcal enlargement. This appears similar to the previous exam dated 05/19/2019, and likely indicates a component of normal pressure hydrocephalus. Moderate to severe chronic microvascular ischemic change and generalized atrophy. TECHNICAL DOCUMENTATION: Quality ID # [id number]: Final reports with documentation of one or more dose reduction techniques (e.g., Automated exposure control, adjustment of the mA and/or kV according to patient size, use of iterative reconstruction technique) copyright 2011 [employer]- All Rights Reserved Assessment and Plan - Diagnosis (1) Seizure Is this a current diagnosis for this admission?: Yes Plan: Complicated by chronic normal pressure hydrocephalus and acute urinary tract infection. IV Keppra loaded. Continue Keppra p.o. as tolerated (2) UTI (urinary tract infection) Qualifiers: Urinary tract infection type: site unspecified Hematuria presence: without hematuria Qualified Code(s): N39.0 - Urinary tract infection, site not specified Is this a current diagnosis for this admission?: Yes Plan: Without fever or leukocytosis, empiric antibiotics initiated in the emergency department discussed with family regarding possibility of colonization. Follow- up CBC and urine culture (3) Dementia Qualifiers: Is this a current diagnosis for this admission?: Yes Plan: Supportive care only. Return to hospice at discharge - Time Time Spent with patient: 25-34 minutes - Inpatient Certification Medical Necessity: Need Close Monitoring Due to Risk of Patient Decompensation
[2019-08-10 06:42] LABS: ABSOLUTE LYMPHOCYTES (AUTO) 1.8 10^3/uL (0.5-4.7); ABSOLUTE MONOCYTES (AUTO) 0.4 10^3/uL (0.1-1.4); ABSOLUTE NEUT (AUTO) 2.7 10^3/uL (1.7-8.2); BASOPHILS % (AUTO) 0.9 % (0-2); EOSINOPHILS % (AUTO) 0.6 % (0-6); HEMOGLOBIN 13.8 g/dL (12.0-15.5); LYMPHOCYTES % (AUTO) 35.9 % (13-45); MEAN CORPUSCULAR HGB CONC 32.8 g/dL (32.0-36.0); MEAN CORPUSCULAR VOLUME 85 fl (80-97); MONOCYTES % (AUTO) 7.9 % (3-13); PLATELET COUNT 210 10^3/uL (150-450); RED BLOOD COUNT 4.92 10^6/uL (3.72-5.28); RED CELL DISTRIBUTION WIDTH 15.1 % (11.5-14.0); SEGMENTED NEUTROPHILS % (AUTO) 54.7 % (42-78); TOTAL CELLS COUNTED % (AUTO) 100 %; WHITE BLOOD COUNT 4.9 10^3/uL (4.0-10.5)
[2019-08-10 07:15] LABS: ANION GAP 9 (5-19); BLOOD UREA NITROGEN 20 mg/dL (7-20); CALCIUM 9.8 mg/dL (8.4-10.2); CARBON DIOXIDE 26 mmol/L (22-30); CHLORIDE 109 mmol/L (98-107); GLUCOSE 108 mg/dL (75-110); POTASSIUM 4.2 mmol/L (3.6-5.0)
--- NOTE | 2019-08-10 08:51 | EKG REPORT ---
SEVERITY:- BORDERLINE ECG - SINUS RHYTHM BORDERLINE R WAVE PROGRESSION, ANTERIOR LEADS : Confirmed by: Lala Peña 10-Aug-2019 08:49:27
[2019-08-10] MEDS ORDERED: HYDRALAZINE HCL INJ/PF 20 MG/1 ML SDV IV PRN (09:02)
[2019-08-10] MEDS: LEVETIRACETAM 500 MG TABLET PO SCH ×3 (10:14→21:17)
--- NOTE | 2019-08-10 17:28 | PDOC PROGRESS REPORT ---
Subjective Progress Note for:: 08/10/19 Subjective:: No adverse events overnight. Her temperature was asked on the low side this morning we put her on a bear hugger. Her blood pressure is not low, in fact she is hypertensive. Reason For Visit: SEIZURE,URINARY TRACT INFECTION (UTI),NPH Physical Exam Vital Signs: Temp Pulse Resp BP Pulse Ox 98.7 F 112 H 16 144/82 H 99 08/10/19 04:46 08/10/19 14:00 08/10/19 11:47 08/10/19 11:47 08/10/19 11:47 Intake & Output 08/09/19 08/10/19 08/11/19 06:59 06:59 06:59 Intake Total 150 Balance 150 Weight 67.7 kg General appearance: PRESENT: no acute distress, cooperative, disheveled Respiratory exam: PRESENT: clear to auscultation mary, prolonged expiratory phas, symmetrical, unlabored. ABSENT: accessory muscle use, chest wall tenderness, crackles, rhonchi, tachypnea, wheezes Cardiovascular exam: PRESENT: RRR, +S1, +S2 Pulses: PRESENT: normal carotid pulses Vascular exam: PRESENT: normal capillary refill GI/Abdominal exam: PRESENT: normal bowel sounds, soft. ABSENT: distended, guard ing, rebound, tenderness Extremities exam: ABSENT: clubbing, pedal edema Musculoskeletal exam: PRESENT: normal inspection. ABSENT: deformity Neurological exam: PRESENT: awake, oriented to person Psychiatric exam: PRESENT: flat affect Skin exam: PRESENT: dry. ABSENT: warm - Forehead was cool to the touch Results Laboratory Results: 08/10/19 06:29 08/10/19 06:29 08/09/19 08/09/19 08/09/19 19:50 20:15 20:15 WBC 5.2 RBC 5.09 Hgb 14.2 Hct 44.5 MCV 88 MCH 28.0 MCHC 31.9 L RDW 15.2 H Plt Count 230 Seg Neutrophils % 55.5 Sodium 142.3 Potassium 4.0 Chloride 105 Carbon Dioxide 20 L Anion Gap 17 BUN 20 Creatinine 0.98 Est GFR ( Amer) > 60 Glucose 141 H Calcium 9.9 Magnesium 2.2 Total Bilirubin 0.3 AST 32 Alkaline Phosphatase 169 H Total Protein 7.2 Albumin 4.0 Urine Color YELLOW Urine Appearance CLOUDY Urine pH 6.0 Ur Specific [place] 1.015 Urine Protein 30 H Urine Glucose (UA) NEGATIVE Urine Ketones NEGATIVE Urine Blood SMALL H Urine Nitrite POSITIVE H Ur Leukocyte Esterase LARGE H Urine WBC (Auto) >182 Urine RBC (Auto) 5 08/10/19 08/10/19 06:29 06:29 WBC 4.9 RBC 4.92 Hgb 13.8 Hct 42.0 MCV 85 MCH 28.0 MCHC 32.8 RDW 15.1 H Plt Count 210 Seg Neutrophils % 54.7 Sodium 143.7 Potassium 4.2 Chloride 109 H Carbon Dioxide 26 Anion Gap 9 BUN 20 Creatinine 0.85 Est GFR ( Amer) > 60 Glucose 108 Calcium 9.8 Magnesium Total Bilirubin AST Alkaline Phosphatase Total Protein Albumin Urine Color Urine Appearance Urine pH Ur Specific [place] Urine Protein Urine Glucose (UA) Urine Ketones Urine Blood Urine Nitrite Ur Leukocyte Esterase Urine WBC (Auto) Urine RBC (Auto) 08/09/19 20:15 Troponin I < 0.012 Impressions: Chest X-Ray 08/09/19 20:06 IMPRESSION: No evidence of acute cardiopulmonary disease. Head CT 08/09/19 20:07 IMPRESSION: No acute intracranial abnormality. Severe ventriculomegaly, out of proportion to sulcal enlargement. This appears similar to the previous exam dated 05/19/2019, and likely indicates a component of normal pressure hydrocephalus. Moderate to severe chronic microvascular ischemic change and generalized atrophy. TECHNICAL DOCUMENTATION: Quality ID # 436: Final reports with documentation of one or more dose reduction techniques (e.g., Automated exposure control, adjustment of the mA and/or kV according to patient size, use of iterative reconstruction technique) copyright 2011 [employer]- All Rights Reserved Assessment and Plan - Diagnosis (1) Altered mental status Qualifiers: Altered mental status type: unspecified Qualified Code(s): R41.82 - Altered mental status, unspecified Is this a current diagnosis for this admission?: Yes Plan: Likely an encephalopathy due to her UTI. We will monitor her response to treatment to see if her encephalopathy resolves. (2) UTI (urinary tract infection) Qualifiers: Urinary tract infection type: site unspecified Hematuria presence: without hematuria Qualified Code(s): N39.0 - Urinary tract infection, site not specified Is this a current diagnosis for this admission?: Yes Plan: We will continue her current antibiotics. She is on Rocephin. She has a gram- negative growing out of the urine. (3) Dementia Qualifiers: Dementia type: unspecified type Dementia behavioral disturbance: without behavioral disturbance Qualified Code(s): F03.90 - Unspecified dementia without behavioral disturbance Is this a current diagnosis for this admission?: Yes Plan: Supportive care only. Return to hospice at discharge (4) Sepsis Qualifiers: Sepsis type: sepsis due to unspecified organism Sepsis acute organ dysfunction status: with acute organ dysfunction Severe sepsis acute organ dysfunction type: encephalopathy Severe sepsis shock status: without septic shock Qualified Code(s): A41.9 - Sepsis, unspecified organism; R65.20 - Severe sepsis without septic shock; G93.40 - Encephalopathy, unspecified Is this a current diagnosis for this admission?: Yes Plan: She had some tachycardia episodically, and her core temperature was low requiring a bear hugger. Due to her UTI. She is on antibiotics and cultures are pending. With supportive measures. - Time Time Spent with patient: 25-34 minutes
[2019-08-10] MEDS ORDERED: CEFTRIAXONE 1 GM/D5W RTU 1 GM/50 ML RTUPB IV SCH (22:00)
[2019-08-11] MEDS: HEPARIN SOD (PORCINE) 5,000 UNIT/ML 1 ML VIAL SUBCUT SCH ×3 (05:30→22:15)
[2019-08-11] MEDS: LEVETIRACETAM 500 MG TABLET PO SCH ×2 (09:39→22:15)
[2019-08-11] MEDS: NAMENDA 28 MG PO SCH ×2 (16:11→17:23)
--- NOTE | 2019-08-11 16:54 | PDOC PROGRESS REPORT ---
Subjective Progress Note for:: 08/11/19 Subjective:: No adverse events overnight. No new complaints. Temperature has been stable. She sleeps a lot, and her caregiver says that that is pretty normal for her. Reason For Visit: SEIZURE,URINARY TRACT INFECTION (UTI),NPH Physical Exam Vital Signs: Temp Pulse Resp BP Pulse Ox 97.3 F 92 15 136/50 H 99 08/11/19 15:07 08/11/19 15:07 08/11/19 15:07 08/11/19 15:07 08/11/19 15:07 Intake & Output 08/10/19 08/11/19 08/12/19 06:59 06:59 06:59 Intake Total 150 1000 120 Balance 150 1000 120 Weight 67.7 kg 69.1 kg General appearance: PRESENT: no acute distress, cooperative, disheveled Respiratory exam: PRESENT: clear to auscultation mary, prolonged expiratory phas, symmetrical, unlabored. ABSENT: accessory muscle use, chest wall tenderness, crackles, rhonchi, tachypnea, wheezes Cardiovascular exam: PRESENT: RRR, +S1, +S2 Pulses: PRESENT: normal carotid pulses Vascular exam: PRESENT: normal capillary refill GI/Abdominal exam: PRESENT: normal bowel sounds, soft. ABSENT: distended, guard ing, rebound, tenderness Extremities exam: ABSENT: clubbing, pedal edema Musculoskeletal exam: PRESENT: normal inspection. ABSENT: deformity Neurological exam: PRESENT: Drowsy but arousable, oriented to person Psychiatric exam: PRESENT: flat affect Skin exam: PRESENT: dry, warm. Results Laboratory Results: 08/10/19 06:29 08/10/19 06:29 08/09/19 19:50 Catheterized Urine Urine Culture - Final Citrobacter Koseri 08/09/19 20:15 Troponin I < 0.012 Impressions: Chest X-Ray 08/09/19 20:06 IMPRESSION: No evidence of acute cardiopulmonary disease. Head CT 08/09/19 20:07 IMPRESSION: No acute intracranial abnormality. Severe ventriculomegaly, out of proportion to sulcal enlargement. This appears similar to the previous exam dated 05/19/2019, and likely indicates a component of normal pressure hydrocephalus. Moderate to severe chronic microvascular ischemic change and generalized atrophy. TECHNICAL DOCUMENTATION: Quality ID # 436: Final reports with documentation of one or more dose reduction techniques (e.g., Automated exposure control, adjustment of the mA and/or kV according to patient size, use of iterative reconstruction technique) copyright 2011 [employer]- All Rights Reserved Assessment and Plan - Diagnosis (1) Altered mental status Qualifiers: Altered mental status type: unspecified Qualified Code(s): R41.82 - Altered mental status, unspecified Is this a current diagnosis for this admission?: Yes Plan: Resolved. Her caregiver says that she is at her baseline (2) UTI (urinary tract infection) Qualifiers: Urinary tract infection type: site unspecified Hematuria presence: without hematuria Qualified Code(s): N39.0 - Urinary tract infection, site not specified Is this a current diagnosis for this admission?: Yes Plan: She grew out a fairly sensitive Citrobacter. We will switch her over to Keflex. (3) Dementia Qualifiers: Dementia type: unspecified type Dementia behavioral disturbance: without behavioral disturbance Qualified Code(s): F03.90 - Unspecified dementia without behavioral disturbance Is this a current diagnosis for this admission?: Yes Plan: At baseline (4) Sepsis Qualifiers: Sepsis type: sepsis due to unspecified organism Sepsis acute organ dysfunction status: with acute organ dysfunction Severe sepsis acute organ dysfunction type: encephalopathy Severe sepsis shock status: without septic shock Qualified Code(s): A41.9 - Sepsis, unspecified organism; R65.20 - Severe sepsis without septic shock; G93.40 - Encephalopathy, unspecified Is this a current diagnosis for this admission?: Yes Plan: Resolved - Time Time Spent with patient: 15-24 minutes
[2019-08-11] MEDS: BRIMONIDINE TARTRATE 0.2% OPH SOLN 5 ML OS SCH (17:20)
[2019-08-11] MEDS: TIMOLOL MALEATE 0.5% OPH SOLN 5 ML OS SCH (17:21)
[2019-08-11] MEDS: DIFLUPREDNATE OS SCH (17:22)
[2019-08-11] MEDS ORDERED: CARBOXYMETHYLCELLULOSE SOD 0.5% 0.4 ML DROPERETTE OU SCH (18:00)
[2019-08-11] MEDS ORDERED: (PENDING PHARMACY ID) (Ketotifen Fumarate [Refresh] 1 DROP) OU SCH (18:00)
[2019-08-11] MEDS ORDERED: (PENDING PHARMACY ID) (Difluprednate [Durezol] 1 DROP) OS SCH (18:00)
[2019-08-11] MEDS ORDERED: (PENDING PHARMACY ID) (Travoprost (Benzalkonium) [Travatan 0.004% Eye Drop] 1 DROP) OS SCH (22:00)
[2019-08-11] MEDS: CEPHALEXIN 500 MG CAPSULE PO SCH (22:14)
[2019-08-11] MEDS: LATANOPROST 0.005% OPH SOLN 2.5 ML OS SCH (22:16)
[2019-08-12] MEDS: CEPHALEXIN 500 MG CAPSULE PO SCH ×3 (05:27→21:45)
[2019-08-12] MEDS: TIMOLOL MALEATE 0.5% OPH SOLN 5 ML OS SCH ×2 (05:28→17:34)
[2019-08-12] MEDS: BRIMONIDINE TARTRATE 0.2% OPH SOLN 5 ML OS SCH ×2 (05:28→17:34)
[2019-08-12] MEDS: DIFLUPREDNATE OS SCH ×2 (05:28→17:34)
[2019-08-12] MEDS: HEPARIN SOD (PORCINE) 5,000 UNIT/ML 1 ML VIAL SUBCUT SCH ×3 (05:29→21:44)
[2019-08-12] MEDS: NAMENDA 28 MG PO SCH (09:47)
[2019-08-12] MEDS: LEVETIRACETAM 500 MG TABLET PO SCH ×2 (09:47→21:48)
[2019-08-12] MEDS: RIVASTIGMINE 9.5 MG/24 HR PATCH.TD24 TD SCH (09:47)
[2019-08-12] MEDS ORDERED: (PENDING PHARMACY ID) (Memantine Hcl [Memantine Hcl Er] 28 MG) PO SCH (10:00)
[2019-08-12] MEDS: CARBOXYMETHYLCELLULOSE SOD 0.5% 0.4 ML DROPERETTE OU SCH ×2 (10:01→17:34)
--- NOTE | 2019-08-12 18:17 | PDOC PROGRESS REPORT ---
Subjective Progress Note for:: 08/12/19 Subjective:: No adverse events overnight. She has not been eating much of anything until this morning. We are going to send her home today but her son decided to resend hospice and was insisting that she have a bowel movement before she leaves. Reason For Visit: SEIZURE,URINARY TRACT INFECTION (UTI),NPH Physical Exam Vital Signs: Temp Pulse Resp BP Pulse Ox 97.5 F 73 16 145/71 H 100 08/12/19 14:58 08/12/19 14:58 08/12/19 14:58 08/12/19 14:58 08/12/19 14:58 Intake & Output 08/11/19 08/12/19 08/13/19 06:59 06:59 06:59 Intake Total 1050 360 0 Output Total 700 0 Balance 1050 -340 0 Weight 69.1 kg 71 kg General appearance: PRESENT: no acute distress, cooperative, disheveled Respiratory exam: PRESENT: clear to auscultation mary, prolonged expiratory phas, symmetrical, unlabored. ABSENT: accessory muscle use, chest wall tenderness, crackles, rhonchi, tachypnea, wheezes Cardiovascular exam: PRESENT: RRR, +S1, +S2 Pulses: PRESENT: normal carotid pulses Vascular exam: PRESENT: normal capillary refill GI/Abdominal exam: PRESENT: normal bowel sounds, soft. ABSENT: distended, guarding, rebound, tenderness Extremities exam: ABSENT: clubbing, pedal edema Musculoskeletal exam: PRESENT: Leg muscle contractures. ABSENT: deformity Neurological exam: PRESENT: Drowsy but arousable, oriented to person Psychiatric exam: PRESENT: flat affect Skin exam: PRESENT: dry, warm. Results Laboratory Results: 08/10/19 06:29 08/10/19 06:29 08/09/19 19:50 Catheterized Urine Urine Culture - Final Citrobacter Koseri 08/09/19 20:15 Troponin I < 0.012 Impressions: Chest X-Ray 08/09/19 20:06 IMPRESSION: No evidence of acute cardiopulmonary disease. Head CT 08/09/19 20:07 IMPRESSION: No acute intracranial abnormality. Severe ventriculomegaly, out of proportion to sulcal enlargement. This appears similar to the previous exam dated 05/19/2019, and likely indicates a component of normal pressure hydrocephalus. Moderate to severe chronic microvascular ischemic change and generalized atrophy. TECHNICAL DOCUMENTATION: Quality ID # 436: Final reports with documentation of one or more dose reduction techniques (e.g., Automated exposure control, adjustment of the mA and/or kV according to patient size, use of iterative reconstruction technique) copyright 2011 [employer]- All Rights Reserved Assessment and Plan - Diagnosis (1) Altered mental status Qualifiers: Altered mental status type: unspecified Qualified Code(s): R41.82 - Altered mental status, unspecified Is this a current diagnosis for this admission?: Yes Plan: Resolved. Her caregiver says that she is at her baseline (2) UTI (urinary tract infection) Qualifiers: Urinary tract infection type: site unspecified Hematuria presence: without hematuria Qualified Code(s): N39.0 - Urinary tract infection, site not specified Is this a current diagnosis for this admission?: Yes Plan: She grew out a fairly sensitive Citrobacter. We switched her over to Keflex. (3) Dementia Qualifiers: Dementia type: unspecified type Dementia behavioral disturbance: without behavioral disturbance Qualified Code(s): F03.90 - Unspecified dementia without behavioral disturbance Is this a current diagnosis for this admission?: Yes Plan: At baseline (4) Sepsis Qualifiers: Sepsis type: sepsis due to unspecified organism Sepsis acute organ dysfunction status: with acute organ dysfunction Severe sepsis acute organ dysfunction type: encephalopathy Severe sepsis shock status: without septic shock Qualified Code(s): A41.9 - Sepsis, unspecified organism; R65.20 - Severe sepsis without septic shock; G93.40 - Encephalopathy, unspecified Is this a current diagnosis for this admission?: Yes Plan: Resolved - Time Time Spent with patient: 15-24 minutes - Plan Summary Plan Summary: The son decided to rescind hospice. Despite the fact she has not eaten in days, he wants her to have a bowel movement before she leaves.
[2019-08-12] MEDS: LATANOPROST 0.005% OPH SOLN 2.5 ML OS SCH (21:48)
[2019-08-13] MEDS: CEPHALEXIN 500 MG CAPSULE PO SCH ×3 (06:42→21:54)
[2019-08-13] MEDS: HEPARIN SOD (PORCINE) 5,000 UNIT/ML 1 ML VIAL SUBCUT SCH ×3 (06:42→21:49)
[2019-08-13] MEDS: DIFLUPREDNATE OS SCH ×2 (06:43→17:27)
[2019-08-13] MEDS: BRIMONIDINE TARTRATE 0.2% OPH SOLN 5 ML OS SCH ×2 (06:44→17:41)
[2019-08-13] MEDS: TIMOLOL MALEATE 0.5% OPH SOLN 5 ML OS SCH ×2 (06:45→17:28)
[2019-08-13] MEDS: LEVETIRACETAM 500 MG TABLET PO SCH ×2 (10:02→21:53)
[2019-08-13] MEDS: NAMENDA 28 MG PO SCH (10:02)
[2019-08-13] MEDS: RIVASTIGMINE 9.5 MG/24 HR PATCH.TD24 TD SCH (10:03)
[2019-08-13] MEDS: CARBOXYMETHYLCELLULOSE SOD 0.5% 0.4 ML DROPERETTE OU SCH ×2 (10:03→17:31)
--- NOTE | 2019-08-13 15:07 | PDOC PROGRESS REPORT ---
Subjective Progress Note for:: 08/13/19 Subjective:: 78-year-old female who was admitted with seizures and a UTI, patient had been on hospice care prior to this admission Reason For Visit: SEIZURE,URINARY TRACT INFECTION (UTI),NPH Physical Exam Vital Signs: Temp Pulse Resp BP Pulse Ox 97.6 F 86 17 130/60 H 93 08/13/19 12:06 08/13/19 12:06 08/13/19 12:06 08/13/19 12:06 08/13/19 12:06 Intake & Output 08/12/19 08/13/19 08/14/19 06:59 06:59 06:59 Intake Total 360 360 120 Output Total 700 600 Balance -340 -240 120 Weight 71 kg 69.8 kg General appearance: PRESENT: no acute distress, other - Resting comfortably and son in the room Respiratory exam: PRESENT: clear to auscultation mary. ABSENT: rales, rhonchi, wheezes Cardiovascular exam: PRESENT: RRR. ABSENT: diastolic murmur, rubs, systolic mu rmur Neurological exam: PRESENT: altered, other - Patient does not verbalize, lays in bed asleep Psychiatric exam: PRESENT: other - No response while in bed Results Laboratory Results: 08/10/19 06:29 08/10/19 06:29 08/09/19 20:15 Troponin I < 0.012 Impressions: Chest X-Ray 08/09/19 20:06 IMPRESSION: No evidence of acute cardiopulmonary disease. Head CT 08/09/19 20:07 IMPRESSION: No acute intracranial abnormality. Severe ventriculomegaly, out of proportion to sulcal enlargement. This appears similar to the previous exam dated 05/19/2019, and likely indicates a component of normal pressure hydrocephalus. Moderate to severe chronic microvascular ischemic change and generalized atrophy. TECHNICAL DOCUMENTATION: Quality ID # 436: Final reports with documentation of one or more dose reduction techniques (e.g., Automated exposure control, adjustment of the mA and/or kV according to patient size, use of iterative reconstruction technique) copyright 2010 [employer]- All Rights Reserved Assessment and Plan - Diagnosis (1) Altered mental status Qualifiers: Altered mental status type: unspecified Qualified Code(s): R41.82 - Altered mental status, unspecified Is this a current diagnosis for this admission?: Yes Plan: Resolved. Her caregiver says that she is at her baseline 08/13/2019 patient is at her baseline, does not verbalize (2) Seizure Is this a current diagnosis for this admission?: Yes Plan: Complicated by chronic normal pressure hydrocephalus and acute urinary tract infection. IV Keppra loaded. Continue Keppra p.o. as tolerated 08/13/2019 patient is on Keppra 500 mg twice daily she is what she was taking before she was admitted. Keppra level is pending. No further seizure activity (3) UTI (urinary tract infection) Qualifiers: Urinary tract infection type: site unspecified Hematuria presence: without hematuria Qualified Code(s): N39.0 - Urinary tract infection, site not specified Is this a current diagnosis for this admission?: Yes Plan: She grew out a fairly sensitive Citrobacter. We switched her over to Keflex. 08/13/2019 she has been on Keflex 500 mg every 8 hours 6 doses patient will need 5 more days of antibiotics - Time Time Spent with patient: 35 or more minutes
[2019-08-13] MEDS ORDERED: INFLUENZA QUAD (6MOS+) 2019-20 VAC 0.5 ML SYR IM ONE (16:30)
[2019-08-13] MEDS: POLYETHYLENE GLYCOL 3350 POWDER 17 GM/1 PACKET PO SCH (17:27)
[2019-08-13] MEDS: LATANOPROST 0.005% OPH SOLN 2.5 ML OS SCH (22:00)
[2019-08-14] MEDS: BRIMONIDINE TARTRATE 0.2% OPH SOLN 5 ML OS SCH (06:52)
[2019-08-14] MEDS: CEPHALEXIN 500 MG CAPSULE PO SCH (06:52)
[2019-08-14] MEDS: HEPARIN SOD (PORCINE) 5,000 UNIT/ML 1 ML VIAL SUBCUT SCH (06:52)
[2019-08-14] MEDS: DIFLUPREDNATE OS SCH (06:55)
[2019-08-14] MEDS: RIVASTIGMINE 9.5 MG/24 HR PATCH.TD24 TD SCH (11:24)
[2019-08-14] MEDS: LEVETIRACETAM 500 MG TABLET PO SCH (11:24)
[2019-08-14] MEDS: POLYETHYLENE GLYCOL 3350 POWDER 17 GM/1 PACKET PO SCH (11:25)
[2019-08-14] MEDS: NAMENDA 28 MG PO SCH (11:26)
[2019-08-14] MEDS: CARBOXYMETHYLCELLULOSE SOD 0.5% 0.4 ML DROPERETTE OU SCH (11:27)
[2019-08-14 12:26] VITALS: BP 120/89
--- NOTE | 2019-08-14 12:55 | PDOC DISCHARGE SUMMARY ---
Impression - Admit/DC Date/PCP Admission Date/Primary Care Provider: 08/09/19 22:01 CARLOS PETE MD Discharge Date: 08/14/19 - Discharge Diagnosis (1) Altered mental status Is this a current diagnosis for this admission?: Yes (2) Seizure Is this a current diagnosis for this admission?: Yes (3) UTI (urinary tract infection) Is this a current diagnosis for this admission?: Yes - Additional Information Resuscitation Status: Do Not Resuscitate Discharge Diet: Cardiac, Diabetic Discharge Activity: Supervised Activity Referrals: STEPHANIE ARIAS MD [NO LOCAL MD] - 08/16/19 1:30 pm (with Jade Gan) Prescriptions: Cephalexin Monohydrate [Keflex 500 mg Capsule] 500 mg PO Q8 #21 capsule Cephalexin Monohydrate [Keflex 500 mg Capsule] 500 mg PO TID #21 capsule Home Medications: Difluprednate [Durezol] 1 drop OS BID 08/09/19 Levetiracetam [Keppra] 500 mg PO BID 08/09/19 Memantine HCl [Memantine HCl ER] 28 mg PO DAILY 08/09/19 Brimonidine Tartrate/Timolol [Combigan 0.2%-0.5% Eye Drops] 1 drop OS BID 08/10/19 Ketotifen Fumarate [Refresh] 1 drop OU BID 08/10/19 Rivastigmine [Exelon 9.5 mg/24 Hr Transdermal Patch] 1 each TD DAILY 08/10/19 Travoprost (Benzalkonium) [Travatan 0.004% Eye Drop] 1 drop OS QHS 08/10/19 Cephalexin Monohydrate [Keflex 500 mg Capsule] 500 mg PO Q8 #21 capsule 08/12/19 Cephalexin Monohydrate [Keflex 500 mg Capsule] 500 mg PO TID #21 capsule 08/14/19 Polyethylene Glycol 3350 [Miralax Powder 17 gm/Packet] 17 gm PO DAILY powd.pack 08/14/19 History of Present Illiness History of Present Illness: PERI REILLY is a 78 year old female Physical Exam Vital Signs: Temp Pulse Resp BP Pulse Ox 97.4 F 75 15 120/89 H 100 08/14/19 12:21 08/14/19 12:21 08/14/19 12:21 08/14/19 12:21 08/14/19 12:21 Intake & Output 08/13/19 08/14/19 08/15/19 06:59 06:59 06:59 Intake Total 360 600 Output Total 600 675 Balance -240 -75 Weight 69.8 kg 72.9 kg Results Laboratory Results: WBC 4.9 10^3/uL (4.0-10.5) 08/10/19 06:29 RBC 4.92 10^6/uL (3.72-5.28) 08/10/19 06:29 Hgb 13.8 g/dL (12.0-15.5) 08/10/19 06:29 Hct 42.0 % (36.0-47.0) 08/10/19 06:29 MCV 85 fl (80-97) 08/10/19 06:29 MCH 28.0 pg (27.0-33.4) 08/10/19 06:29 MCHC 32.8 g/dL (32.0-36.0) 08/10/19 06:29 RDW 15.1 % (11.5-14.0) H 08/10/19 06:29 Plt Count 210 10^3/uL (150-450) 08/10/19 06:29 Lymph % (Auto) 35.9 % (13-45) 08/10/19 06:29 [place] % (Auto) 7.9 % (3-13) 08/10/19 06:29 Eos % (Auto) 0.6 % (0-6) 08/10/19 06:29 Baso % (Auto) 0.9 % (0-2) 08/10/19 06:29 Absolute Neuts (auto) 2.7 10^3/uL (1.7-8.2) 08/10/19 06:29 Absolute Lymphs (auto) 1.8 10^3/uL (0.5-4.7) 08/10/19 06:29 Absolute Monos (auto) 0.4 10^3/uL (0.1-1.4) 08/10/19 06:29 Absolute Eos (auto) 0.0 10^3/uL (0.0-0.6) 08/10/19 06:29 Absolute Basos (auto) 0.0 10^3/uL (0.0-0.2) 08/10/19 06:29 Seg Neutrophils % 54.7 % (42-78) 08/10/19 06:29 Sodium 143.7 mmol/L (137-145) 08/10/19 06:29 Potassium 4.2 mmol/L (3.6-5.0) 08/10/19 06:29 Chloride 109 mmol/L (98-107) H 08/10/19 06:29 Carbon Dioxide 26 mmol/L (22-30) 08/10/19 06:29 Anion Gap 9 (5-19) 08/10/19 06:29 BUN 20 mg/dL (7-20) 08/10/19 06:29 Creatinine 0.85 mg/dL (0.52-1.25) 08/10/19 06:29 Est GFR ( Amer) > 60 (>60) 08/10/19 06:29 Est GFR (MDRD) Non-Af > 60 (>60) 08/10/19 06:29 Glucose 108 mg/dL (75-110) 08/10/19 06:29 Calcium 9.8 mg/dL (8.4-10.2) 08/10/19 06:29 Magnesium 2.2 mg/dL (1.6-2.3) 08/09/19 20:15 Total Bilirubin 0.3 mg/dL (0.2-1.3) 08/09/19 20:15 Direct Bilirubin 0.1 mg/dL (0.0-0.4) 08/09/19 20:15 Neonat Total Bilirubin Not Reportable 08/09/19 20:15 Neonat Direct Bilirubin Not Reportable 08/09/19 20:15 Neonat Indirect Bili Not Reportable 08/09/19 20:15 AST 32 U/L (14-36) 08/09/19 20:15 ALT 24 U/L (<35) 08/09/19 20:15 Alkaline Phosphatase 169 U/L (38-126) H 08/09/19 20:15 Troponin I < 0.012 ng/mL 08/09/19 20:15 Total Protein 7.2 g/dL (6.3-8.2) 08/09/19 20:15 Albumin 4.0 g/dL (3.5-5.0) 08/09/19 20:15 Urine Color YELLOW 08/09/19 19:50 Urine Appearance CLOUDY 08/09/19 19:50 Urine pH 6.0 (5.0-9.0) 08/09/19 19:50 Ur Specific [place] 1.015 08/09/19 19:50 Urine Protein 30 mg/dL (NEGATIVE) H 08/09/19 19:50 Urine Glucose (UA) NEGATIVE mg/dL (NEGATIVE) 08/09/19 19:50 Urine Ketones NEGATIVE mg/dL (NEGATIVE) 08/09/19 19:50 Urine Blood SMALL (NEGATIVE) H 08/09/19 19:50 Urine Nitrite POSITIVE (NEGATIVE) H 08/09/19 19:50 Urine Bilirubin NEGATIVE (NEGATIVE) 08/09/19 19:50 Urine Urobilinogen NEGATIVE mg/dL (<2.0) 08/09/19 19:50 Ur Leukocyte Esterase LARGE (NEGATIVE) H 08/09/19 19:50 Urine WBC (Auto) >182 /HPF 08/09/19 19:50 Urine RBC (Auto) 5 /HPF 08/09/19 19:50 Urine Bacteria (Auto) TRACE /HPF 08/09/19 19:50 Urine WBC Clumps MANY /HPF 08/09/19 19:50 Squamous Epi Cells Auto 1 /HPF 08/09/19 19:50 Urine Mucus (Auto) OCC /LPF 08/09/19 19:50 Urine Ascorbic Acid NEGATIVE (NEGATIVE) 08/09/19 19:50 Urine Opiates Screen NEGATIVE 08/09/19 19:50 Urine Methadone Screen NEGATIVE 08/09/19 19:50 Ur Barbiturates Screen NEGATIVE 08/09/19 19:50 Ur Phencyclidine Scrn NEGATIVE 08/09/19 19:50 Ur Amphetamines Screen NEGATIVE 08/09/19 19:50 U Benzodiazepines Scrn NEGATIVE 08/09/19 19:50 Urine Cocaine Screen NEGATIVE 08/09/19 19:50 U Marijuana (THC) Screen NEGATIVE 08/09/19 19:50 Serum Alcohol < 10 mg/dL (NONE DETECTED) 08/09/19 20:15 08/09/19 20:15 Troponin I < 0.012 Impressions: Chest X-Ray 08/09/19 20:06 IMPRESSION: No evidence of acute cardiopulmonary disease. Head CT 08/09/19 20:07 IMPRESSION: No acute intracranial abnormality. Severe ventriculomegaly, out of proportion to sulcal enlargement. This appears similar to the previous exam dated 05/19/2019, and likely indicates a component of normal pressure hydrocephalus. Moderate to severe chronic microvascular ischemic change and generalized atrophy. TECHNICAL DOCUMENTATION: Quality ID # [id number]: Final reports with documentation of one or more dose reduction techniques (e.g., Automated exposure control, adjustment of the mA and/or kV according to patient size, use of iterative reconstruction technique) copyright 2011 [employer]- All Rights Reserved Stroke Is this a Stroke Patient?: No Acute Heart Failure - Is this a Heart Failure Patient?: No
== END 2019-08-14 13:14 | disposition home health service (06) | DRG 872 ==
LOC: ER 19:11 → EH 22:01 → 4S 23:16
PROVIDERS: ADMIT Internal Medicine; ATTEND Internal Medicine
DX: A41.9 Sepsis, unspecified organism (principal); N39.0 Urinary tract infection, site not specified; G93.40 Encephalopathy, unspecified; R56.9 Unspecified convulsions; R65.20 Severe sepsis without septic shock; F03.90 Unspecified dementia, unspecified severity, without behavioral disturbance, psychotic disturbance, mood disturbance, and anxiety; Z74.01 Bed confinement status; Z90.10 Acquired absence of unspecified breast and nipple; Z66 Do not resuscitate; Z79.899 Other long term (current) drug therapy; Z82.49 Family history of ischemic heart disease and other diseases of the circulatory system
CPT/HCPCS: 36415; 51701; 70450; 71045; 80048; 80053; 80177; 80307; 81001; 83735; 84484; 85025; 87086; 87088; 87186; 93005; 93010; 96374; 99285; J0360; J0696; J1644; J1940; J1953; J3490; J7030

== ENCOUNTER 2019-12-06 19:51 | Emergency (ER) | payer MEDICARE ==
[2019-12-06 20:54] LABS: ABSOLUTE NEUT (AUTO) 12.4 10^3/uL (1.7-8.2); BASOPHILS % (AUTO) 0.2 % (0-2); HEMATOCRIT 33.8 % (36.0-47.0); HEMOGLOBIN 10.9 g/dL (12.0-15.5); LYMPHOCYTES % (AUTO) 6.7 % (13-45); MEAN CORPUSCULAR HEMOGLOBIN 28.3 pg (27.0-33.4); MEAN CORPUSCULAR HGB CONC 32.2 g/dL (32.0-36.0); MEAN CORPUSCULAR VOLUME 88 fl (80-97); MONOCYTES % (AUTO) 6.8 % (3-13); PLATELET COUNT 360 10^3/uL (150-450); RED BLOOD COUNT 3.86 10^6/uL (3.72-5.28); RED CELL DISTRIBUTION WIDTH 16.3 % (11.5-14.0); SEGMENTED NEUTROPHILS % (AUTO) 86.3 % (42-78); TOTAL CELLS COUNTED % (AUTO) 100 %; WHITE BLOOD COUNT 14.4 10^3/uL (4.0-10.5)
[2019-12-06 21:23] LABS: ALBUMIN 2.6 g/dL (3.5-5.0); ALKALINE PHOSPHATASE 125 U/L (38-126); ANION GAP 7 (5-19); ASPARTATE AMINO TRANSFERASE 16 U/L (14-36); BILIRUBIN,DIRECT 0.4 mg/dL (0.0-0.4); BILIRUBIN,TOTAL 0.7 mg/dL (0.2-1.3); BLOOD UREA NITROGEN 18 mg/dL (7-20); CALCIUM 9.1 mg/dL (8.4-10.2); CARBON DIOXIDE 32 mmol/L (22-30); CHLORIDE 111 mmol/L (98-107); CREATINE KINASE 118 U/L (30-135); GLUCOSE 129 mg/dL (75-110); POTASSIUM 3.6 mmol/L (3.6-5.0); TOTAL PROTEIN 5.8 g/dL (6.3-8.2)
[2019-12-06 21:25] LABS: CREATINE KINASE MB < 0.22 ng/mL (<4.55); TROPONIN I < 0.012 ng/mL
[2019-12-06 23:28] LABS: APPEARANCE,URINE CLOUDY; BILIRUBIN,URINE SMALL (NEGATIVE); COLOR,URINE AMBER; GLUCOSE, URINE NEGATIVE (NEGATIVE); KETONES,URINE 80 mg/dL (NEGATIVE); LEUKOCYTE ESTERASE,URINE LARGE (NEGATIVE); NITRITE,URINE NEGATIVE (NEGATIVE); PROTEIN,URINE 100 mg/dL (NEGATIVE); URINE SPECIFIC GRAVITY 1.031
[2019-12-06] MEDS ORDERED: NORMAL SALINE 1000 ML 1,000 ML IV ONE (23:31)
[2019-12-06] MEDS ORDERED: CEFTRIAXONE 1 GM/D5W RTU 1 GM/50 ML RTUPB IV ONE (23:34)
--- NOTE | 2019-12-06 23:35 | ER Document Report ---
ED General - General Chief Complaint: Altered Mental Status Stated Complaint: ALTERED MENTAL STATUS Time Seen by Provider: 12/06/19 23:18 Primary Care Provider: STEPHANIE ARIAS MD [Primary Care Provider] - Follow up as needed Notes: Patient is a 79-year-old female that comes to the emergency department for chief complaint of decreased responsiveness for the past several days in addition to this patient started running a fever of 101 F today. Patient is also had a congested cough for the past couple of days. Patient is still eating, she ate this morning and is still taking her oral medications reportedly. Patient has a history of normal pressure hydrocephalus, seizure disorder, advanced dementia, she has been bedbound since 2016 and she is nonverbal at baseline. Patient was DNR but EMS reports and son confirms that her DNR was torn up just prior to arrival by her son/ who are both power of tax attorney. Son states that patient is also on Levaquin and has been taking this for the past 2 to 3 days for chest congestion. She has been vaccinated for influenza. TRAVEL OUTSIDE OF THE [place] IN LAST 30 DAYS: No - Related Data Allergies/Adverse Reactions: No Known Allergies Allergy (Unverified 01/06/16 02:25) Home Medications: keppra Past Medical History - General Information source: Patient - Social History Smoking Status: Never Smoker Frequency of alcohol use: None Drug Abuse: None Lives with: Family Family History: Hypertension Patient has suicidal ideation: No Patient has homicidal ideation: No Neurological Medical History: Reports: Hx Seizures Renal/ Medical History: Denies: Hx Peritoneal Dialysis Psychiatric Medical History: Reports: Hx Dementia Denies: Hx Depression Past Surgical History: Reports: Hx Mastectomy, Hx Orthopedic Surgery - Rt knee - Immunizations Immunizations up to date: Yes Hx Diphtheria, Pertussis, Tetanus Vaccination: Yes Review of Systems - Review of Systems Constitutional: See HPI EENT: No symptoms reported Cardiovascular: No symptoms reported Respiratory: See HPI Gastrointestinal: No symptoms reported Genitourinary: No symptoms reported Female Genitourinary: No symptoms reported Musculoskeletal: No symptoms reported Skin: No symptoms reported Hematologic/Lymphatic: No symptoms reported Neurological/Psychological: See HPI Physical Exam - Vital signs Vitals: BP 158/84 H 12/06/19 20:00 - Notes Notes: GENERAL: Patient sitting with her eyes open, head back on the bed, does not appear to be in distress but is not responsive HEAD: Normocephalic, atraumatic. 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 Oropharynx unremarkable. Airway patent. NECK: Full range of motion. Supple. Trachea midline. LUNGS: Clear to auscultation bilaterally, no wheezes, rales, or rhonchi. Occasional mild cough, no tachypnea or respiratory distress HEART: Regular rate and rhythm. No murmur ABDOMEN: Soft, non-tender. Non-distended. EXTREMITIES: No edema, normal radial and dorsalis pedis pulses bilaterally. No cyanosis. BACK: no cervical, thoracic, lumbar midline tenderness. NEUROLOGICAL: Unresponsive and nonverbal at baseline SKIN: Warm, dry, normal turgor. No rashes or lesions noted. Course - Re-evaluation Re-evalutation: Patient nonverbal and unresponsive at baseline. Vital signs unremarkable. No signs of distress, no tachypnea or labored breathing, clear lungs. Soft abdomen. CBC shows mild leukocytosis at 14,000 with elevation of neutrophils but no bandemia. Chemistry nonspecific, urine shows infection. Cultures for blood and urine placed. Chest x-ray shows possible early developing pneumonia. CT unchanged from prior. Patient was reportedly on Levaquin, however I found out that patient had actually received doses of this per rectum and son admits to seeing full pills coming out in her stools. I suspect she was not receiving any Levaquin at all. She does take medications by mouth and is essentially fed pure with ground up pills. Patient is actually very well cared for, has good skin, combed hair, and she has 22-hour nursing care at home. Son was initially saying patient is below baseline but when I talked to him again he admits that she is basically at her norm. I discussed with Dr. Rice. Because of her unremarkable vital signs, general work-up, it seems appropriate that patient can go home with oral antibiotic with her nursing care, and she can return if she worsens. I discussed this with son and and they do state satisfaction and agreement with plan. She is given Rocephin, Levaquin, Keppra here because she missed her Keppra dose and we wanted to initiate her on antibiotics. - Vital Signs Vital signs: Temp Pulse Resp BP Pulse Ox 96.9 F L 89 24 H 158/97 H 99 12/07/19 05:33 12/07/19 05:33 12/07/19 05:33 12/07/19 05:33 12/07/19 05:33 - Laboratory Result Diagrams: 12/06/19 20:40 12/06/19 20:40 Laboratory results interpreted by me: 12/06/19 12/06/19 12/06/19 20:40 20:40 22:50 WBC 14.4 H Hgb 10.9 L Hct 33.8 L RDW 16.3 H Lymph % (Auto) 6.7 L Absolute Neuts (auto) 12.4 H Seg Neutrophils % 86.3 H Sodium 149.7 H Chloride 111 H Carbon Dioxide 32 H Glucose 129 H Total Protein 5.8 L Albumin 2.6 L Urine Protein 100 H Urine Ketones 80 H Urine Bilirubin SMALL H Urine Urobilinogen 4.0 H Ur Leukocyte Esterase LARGE H Urine Ascorbic Acid 40 H Discharge - Discharge Clinical Impression: Cough Fever Qualifiers: Fever type: unspecified Qualified Code(s): R50.9 - Fever, unspecified Urinary tract infection Qualifiers: Urinary tract infection type: site unspecified Hematuria presence: without hematuria Qualified Code(s): N39.0 - Urinary tract infection, site not specified Condition: Stable Disposition: HOME, SELF-CARE Additional Instructions: She has received both Rocephin and Levaquin IV tonight. She also received her Keppra tonight. Her work-up indicates a urinary tract infection, this appears to be the cause of the fever. Her chest x-ray indicates questionable early developing pneumonia. I recommend Levaquin 750 mg daily by mouth, do not give rectally. We do have blood and urine cultures growing in our lab and you will be contacted for any concerning results. Return if she worsens including fevers continuing to spike, abnormal vital si gns, vomiting, rapid or labored breathing, or any other concerning or worsening symptoms. Prescriptions: Levetiracetam [Keppra] 750 mg PO QID 10 Days #40 tablet Levofloxacin [Levaquin 750 mg Tablet] 750 mg PO DAILY #4 tablet Diazepam [Valium] 2 mg PO QID 10 Days #40 tablet Referrals: STEPHANIE ARIAS MD [Primary Care Provider] - Follow up as needed
--- NOTE | 2019-12-07 00:26 | RADIOLOGY REPORT (SQ) ---
AP Portable chest: 12/06/2019 11:24 PM RECEPTIONIST SCHEDULER History: 79-year old patient with fever, cough, congestion. Comparison: Chest radiograph performed 06/01/2019. Findings: The cardiomediastinal silhouette is normal in size. No pneumothorax is seen. There are bibasilar airspace opacities present. No discrete pleural effusion is apparent. There are surgical clips at the left axilla. The left breast may be surgically absent. Impression: There are bibasilar space opacities which may reflect developing infection.
--- NOTE | 2019-12-07 00:47 | RADIOLOGY REPORT (SQ) ---
CLINICAL HISTORY: decreased responsiveness COMPARISON: 08/09/2019. TECHNIQUE: CT HEAD WITHOUT IV CONTRAST on 12/06/2019 11:31 PM WEED CONTROLLER This exam was performed according to our departmental dose-optimization program, which includes automated exposure control, adjustment of the mA and/or kV according to patient size and/or use of iterative reconstruction technique. FINDINGS: There is no acute hemorrhage, mass effect or midline shift. Mcintyre-white differentiation is preserved. Ventricles are dilated which could be due to central atrophy versus hydrocephalus. This is unchanged. There is diffuse cerebral atrophy. There are mild patchy hypodensities within the periventricular and subcortical white matter, consistent with microangiopathic ischemic changes. The calvarium is intact. Orbits and globes are unremarkable. The paranasal sinuses are clear. Mastoid air cells are clear. IMPRESSION: No acute findings. No change.
[2019-12-07] MEDS ORDERED: LEVOFLOXACIN 750 MG/D5W RTU 750 MG/150 ML RTUPB IV ONE (02:00)
[2019-12-07] MEDS ORDERED: LEVETIRACETAM 1000 MG/NACL-ISO 1,000 MG/100 ML RTUPB IV ONE (02:00)
[2019-12-07 05:33] VITALS: BP 158/97
--- NOTE | 2019-12-07 10:29 | EKG REPORT ---
SEVERITY:- NORMAL ECG - SINUS RHYTHM : Confirmed by: Fidencio Cooley MD 07-Dec-2019 10:29:08
== END 2019-12-07 05:34 | disposition home or self-care (01) ==
LOC: ER 19:51
DX: N39.0 Urinary tract infection, site not specified (principal); R50.9 Fever, unspecified; R05 Cough; R41.82 Altered mental status, unspecified; R09.81 Nasal congestion; Z79.899 Other long term (current) drug therapy
CPT/HCPCS: 93005; 99285; 51701; 96365; 96366; 96367; 36415; 87040; 87086; 82553; 82550; 85025; 80053; 81001; 84484; 71045; 70450; 93010; J7030; J0696; J1956; J1953